=== PATIENT | female | born 1945 | race Caucasian/White ===

== ENCOUNTER → 2017-08-13 14:19 | Outpatient (CLI) | payer MEDICARE, SELFPAY ==
--- NOTE | 2017-08-13 14:20 | RAD_ITS ---
STUDY: X-RAY - LEFT KNEE REASON FOR EXAM: Follow-up after recent fall and surgery of the patella in June. TECHNIQUE: 4 view(s) of the knee. COMPARISON: Radiographs 07/09/2017. FINDINGS: Normal visualized distal femur. Normal visualized proximal tibia and fibula. Normal proximal tibiofibular articulation. Normal medial femorotibial compartment. Normal lateral femorotibial compartment. There are 2 screws transfixing a healing fracture of the patella in anatomic position. There is mild anterior soft tissue swelling. RAD/Knee 4 or More Views IMPRESSION: ORIF of healing patellar fracture. Electronically Signed: Chepe Longoria MD at 16:13 EST Tel , Service support ,
== END ==
PROVIDERS: Family Provider Family Medicine; PCP Family Medicine; Visit Provider Orthopaedic Surgery
DX: S82.002D Unspecified fracture of left patella, subsequent encounter for closed fracture with routine healing (principal); X58.XXXD Exposure to other specified factors, subsequent encounter
CPT/HCPCS: 73564

== ENCOUNTER 2017-09-16 14:30 | Outpatient (RCR) | payer MEDICARE, SELFPAY ==
--- NOTE | 2017-07-15 16:15 | HP.PTEVAL ---
Patient's Visit Information REE WILEY is a 72 year old F referred to Physical Therapy by DO PAYTON Watts with a diagnosis of S/P L patella ORIF approx 04/25. Date of Evaluation: 07/15/17 Physical Therapist: Jeff Cole DPT, OC - Visit Plan Frequency: 1x/Week Duration: 4-6 Weeks Plan: weekly to start as patient is doing well with ROM adn pain /swelling limited currently by limitations per script. Wisdom ee for patellar mobs, knee ROM progression, wrist ROM(I asked doctor and office said she could move wrist for ROM, Strength progression of hips and ankels and knees when appropriate. Gait progression as allowed by script. 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 Went to ER the next day. Hurt R wrist also and has slight fracture in R elbow so is wearing wrist brace. Got x ray and surgery 3 days later. Patella was split in half and she pinned it and surgical mesh around the patells. All tendons in tact. In brace since surgery, needed walker the first few days to steady self. Walks around house now with brace and without AD. L knee pain is mostly not a problem, if moves it wrong way then it will hurt 8/10. R elbow hurts slightly posterior if bends it too far. Sleep is OK now, up a little bit just after surgery. Sleeps in a recliner. Stpes at [place] but does not need to use them. Bathroom and needs are on main floor. Dresses self except can't get L shoe and sock on. brace on and off herself. Sitting around mostly at home. No exercises except ankle pump. Fairly sedentary, but works at [employer] on feet all the time. Will be off for a while.Can get a 10 minute break every hour. No falls other than this one. No dizzyness. Doctor said to be careful and gentle at first. - Pain L knee Pain Intensity (Out of 10): 0 Pain Intensity Range: 0, 3 - Objective pUSHED BACK TO EVAL ROOM IN but walks out of clinic without pain with brace locked in ext on L. Don brace with assist, doff sI. Ambulate I , transfers I, rolls on bed I. R AROM WNL and 5/5 strength. L knee 0-70 AROM today without pain, i explained to her the limtiations based on her prescription. SLR with 5 ext lag. Knee strength NT L , hip 4-/5 on L and ankle 4/5. Incision is anterior at knee cap, no signs of excessive redness heat or swelling., patella is mildlytender medially and swelling is minimal today. Patella is stiff iin inf/superior direction. - Goals Goal 1:: 0-90 AROM within allowances of script adn progress appropriately Goal Time Frame: 4-6 Weeks Goal 2:: Pain remain 0-1/10 and comfortable at rest while improving WB and and ROM and strength. Goal Time Frame: 4-6 Weeks Goal 3:: When allowed, walk without gait deviations and steps reciprocal with one rail Goal Time Frame: 4-6 Weeks - Rehabilitation Potential Physical Therapy Diagnosis: S/P L patella ORIF - Anticipated Interventions Patient/Client Instruction: Educate patient on: Condition, Plan of Care For the Purpose of:: To increase ROM, To improve nutrient delivery to tissue, To improve ability of physical actions for home/community/work/leisure, To improve gait and locomotor functions Therapeutic Exercise to Include: Strength training, Flexibilty training, Gait and locomotor training, Passive ROM, Active ROM For the Purpose of:: To increase ROM, To improve nutrient delivery to tissue, To improve muscle performance and motor function, To improve ability of physical actions for home/community/work/leisure, To improve gait and locomotor functions Manual Therapy Techniques to Include: Mobilization Comment: patella For the Purpose of:: To increase ROM Cryotherapy (ice pack, ice massage): Yes For the Purpose of:: To decrease swelling/inflammation Thank you for the opportunity to evaluate your patient. For Medicare and Medicare HMO plans, please review the plan of care and approve it. It will need to be FAXED BACK to us at [phone] for Medicare purposes. Please let me know if there are questions or concerns regarding this plan of care. Physician Signature: Date:
--- NOTE | 2017-08-05 14:44 | HP.PTREVAL_ITS ---
Morena Reaves DO, It has been my pleasure to treat REE WILEY over the last 3 visits for S/ P L patella ORIF approx 04/25. Please see the progress note below for an update on the physical therapy plan of care! Subjective: No pain. Feels tension at times with ex. Doing them without problem. Motion is improving. Sleep is good. Not leaving house alot as steps do not have rail. Objective/Function: 0-90 AROM in supine, pain at end range. Patella very stiff in the inferior direction but loosens up nicely with mobs. 0-85 in prone. PT IS ON TARGET ACCORDING TO LIMITATIONS ON PRESCRIPTION AND READY TO PROGRESS STRENGTH ADN ROM WHEN RELEASED BY DOCTOR. Plan Plan: f/u next week after doctor visit to progress WB out of brace if doctor allows. Progress ROM and strength as allowed by doctor. Goals Goal 1:: 0-90 AROM within allowances of script adn progress appropriately Goal Time Frame: 4-6 Weeks Goal Progress: Progressing Goal 2:: Pain remain 0-1/10 and comfortable at rest while improving WB and and ROM and strength. Goal Time Frame: 4-6 Weeks Goal Progress: - Goal 3:: When allowed, walk without gait deviations and steps reciprocal with one rail Goal Time Frame: 4-6 Weeks Anticipated Interventions Patient/Client Instruction: Educate patient on: Condition, Plan of Care For the Purpose of:: To increase ROM, To improve nutrient delivery to tissue, To improve ability of physical actions for home/community/work/leisure, To improve gait and locomotor functions Therapeutic Exercise to Include: Strength training, Flexibilty training, Gait and locomotor training, Passive ROM, Active ROM For the Purpose of:: To increase ROM, To improve nutrient delivery to tissue, To improve muscle performance and motor function, To improve ability of physical actions for home/community/work/leisure, To improve gait and locomotor functions Manual Therapy Techniques to Include: Mobilization Comment: patella For the Purpose of:: To increase ROM Cryotherapy (ice pack, ice massage): Yes For the Purpose of:: To decrease swelling/inflammation Please do not hesitate to contact me at [phone] by phone or Fax: if you have questions or concerns regarding this new plan of care! Sincerely, Jeff Cole, PEMAT, OC
--- NOTE | 2017-08-14 14:23 | HP.PTREVAL_ITS ---
Morena Reaves DO, It has been my pleasure to treat REE WILEY over the last 4 visits for S/ P L patella ORIF approx 04/25. Please see the progress note below for an update on the physical therapy plan of care! Subjective: Good report from doctor , no more brace, no real pain. Doing great. Sore leg from strengthening ex. HEP going well. Objective/Function: 0-95 AROMK to start then 98 after a few repetitions with OP. Walking is safe and I without brace today, steps are reciprocal with rail up and needs two rails and much UE support to descend with L as she does nto yet have enough motion. Plan Plan: G- code LEFS and. in gym for teach strength 1x/week for 2-4 weeks as needed then silver sneakers if motion improving. Also show step ups and standing ex if pain doing well. Goals Goal 1:: 0-90 AROM within allowances of script adn progress appropriately Goal Time Frame: 4-6 Weeks Goal Progress: Progressing Goal 2:: Pain remain 0-1/10 and comfortable at rest while improving WB and and ROM and strength. Goal Time Frame: 4-6 Weeks Goal Progress: - Goal 3:: When allowed, walk without gait deviations and steps reciprocal with one rail Goal Time Frame: 4-6 Weeks Anticipated Interventions Patient/Client Instruction: Educate patient on: Condition, Plan of Care For the Purpose of:: To increase ROM, To improve nutrient delivery to tissue, To improve ability of physical actions for home/community/work/leisure, To improve gait and locomotor functions Therapeutic Exercise to Include: Strength training, Flexibilty training, Gait and locomotor training, Passive ROM, Active ROM For the Purpose of:: To increase ROM, To improve nutrient delivery to tissue, To improve muscle performance and motor function, To improve ability of physical actions for home/community/work/leisure, To improve gait and locomotor functions Manual Therapy Techniques to Include: Mobilization Comment: patella For the Purpose of:: To increase ROM Cryotherapy (ice pack, ice massage): Yes For the Purpose of:: To decrease swelling/inflammation Please do not hesitate to contact me at [phone] by phone or Fax: if you have questions or concerns regarding this new plan of care! Sincerely, Jeff Cole, DPT, OC
--- NOTE | 2017-08-22 12:50 | HP.PTREVAL_ITS ---
Morena Reaves DO, It has been my pleasure to treat REE WILEY over the last 5 visits for S/ P L patella ORIF approx 04/25. Please see the progress note below for an update on the physical therapy plan of care! Subjective: Took a day off of ex and took it easy and is feeling good today, was sore two days ago. Sleeping well and swelling coming down. HEP going OK, bending to end range still painful at times. Objective/Function: 0-104 AROM. 107 after therapy. 0 ext lag with SLR. Walks with mnor L antalgia. Down steps with L turns to side a little bit due to ROM. Plan Plan: Continue weekly to every other week for 2-4 visits to progress ex, ensure tolerance and progress steps Goals Goal 1:: 0-90 AROM within allowances of script adn progress appropriately Goal Time Frame: 4-6 Weeks Goal Progress: Progressing Goal 2:: Pain remain 0-1/10 and comfortable at rest while improving WB and and ROM and strength. Goal Time Frame: 4-6 Weeks Goal Progress: Goal Met Goal 3:: When allowed, walk without gait deviations and steps reciprocal with one rail Goal Time Frame: 4-6 Weeks Goal Progress: Progressing Goal 4:: Pt feel life activities back to normal Goal Time Frame: 4-6 Weeks Goal Progress: NEW GOAL Anticipated Interventions Patient/Client Instruction: Educate patient on: Condition, Plan of Care For the Purpose of:: To increase ROM, To improve nutrient delivery to tissue, To improve ability of physical actions for home/community/work/leisure, To improve gait and locomotor functions Therapeutic Exercise to Include: Strength training, Flexibilty training, Gait and locomotor training, Passive ROM, Active ROM For the Purpose of:: To increase ROM, To improve nutrient delivery to tissue, To improve muscle performance and motor function, To improve ability of physical actions for home/community/work/leisure, To improve gait and locomotor functions Manual Therapy Techniques to Include: Mobilization Comment: patella For the Purpose of:: To increase ROM Cryotherapy (ice pack, ice massage): Yes For the Purpose of:: To decrease swelling/inflammation Please do not hesitate to contact me at [phone] by phone or Fax: if you have questions or concerns regarding this new plan of care! Sincerely, Jeff Cole DPT, OC
--- NOTE | 2017-09-16 14:59 | HP.PTDCSUM ---
HP - PT D/C Summary It has been my pleasure to treat REE WILEY under orders from Morena Reaves DO, for the diagnosis of S/P L patella ORIF approx 04/25 for a total of 6 visit(s). Discharge Date: 09/16/17 Please see the following information for a summary of their discharge status. - Subjective Subjective: Doing leg lifts x 3, not step ups or machines. Retired last week in order to afford insurance. To doctor 09/23. Sleep is OK. Achy in L knee much of time. All joints ached last week. Wants to be done with PT due to insurance situation. Will initiate gym ex when daughter feels better in a week or so. - Pain L knee Pain Intensity (Out of 10): 4 - Objective Objective/Function: 0-112 aROM. steps are reciprocal and slightly weak descending with L. also a little painful. Gait is normal. Overall much better and can continue on own. I had hoped for her to have a few weeks of gym ex and WB ex by this time but she has not yet begun outside of PT. - Goals Goal 1:: 0-90 AROM within allowances of script adn progress appropriately Goal Progress: Goal Met Goal 2:: Pain remain 0-1/10 and comfortable at rest while improving WB and and ROM and strength. Goal Progress: Progressing Goal 3:: When allowed, walk without gait deviations and steps reciprocal with one rail Goal Progress: Goal Met Goal 4:: Pt feel life activities back to normal Goal Progress: Goal Met - Plan Plan: D/C to gym ex. - D/C Information Discharge Comments: Doing OK, motion slowly improving. Strength slowly improving. Steady ache remains. Wishes to be done with PT due to insurance reasons and should do well on her own. Will f.u with doctor next week. If there are questions or concerns regarding this patient's physical therapy, please feel free to call me at [phone]. Thank you for the referral of this patient. Sincerely, Jeff Cole, DPT, OC
== END 2017-09-16 19:00 | disposition home or self-care (01) ==
LOC: PT 14:30
PROVIDERS: Family Provider Family Medicine; PCP Family Medicine; Visit Provider Orthopaedic Surgery
DX: Z98.890 Other specified postprocedural states (principal)
CPT/HCPCS: 97110; 97162; 97530

== ENCOUNTER → 2017-09-26 12:48 | Outpatient (CLI) | payer MEDICARE, SELFPAY ==
--- NOTE | 2017-09-26 12:51 | RAD_ITS ---
STUDY: X-RAY - LEFT KNEE REASON FOR EXAM: 3 months postop. TECHNIQUE: 4 view(s) of the knee. COMPARISON: Radiographs 08/13/2017 and 07/09/2017. FINDINGS: Normal visualized distal femur. Normal visualized proximal tibia and fibula. Normal proximal tibiofibular articulation. Normal medial femorotibial compartment. Normal lateral femorotibial compartment. Normal patellofemoral articulation. There are 2 screws transfixing a patellar fracture with the fragments remaining in anatomical alignment and position. There is interval healing with the fracture line less distinct. The soft tissue structures are unremarkable. RAD/Knee 4 or More Views IMPRESSION: ORIF of healing patellar fracture. Electronically Signed: Chepe Longoria MD at 11:46 EDT Tel , Service support ,
--- NOTE | 2017-09-26 13:26 | RAD_ITS ---
STUDY: X-RAY - RIGHT HAND, ATTENTION RING FINGER REASON FOR EXAM: Soft tissue growth/infection at the DIP of the ring finger. TECHNIQUE: 3 view(s) of the finger were obtained. COMPARISON: None. FINDINGS: Normal metacarpal head. Normal metacarpophalangeal joint. Normal proximal phalanx. Normal middle phalanx. Normal distal phalanx without osseous destruction. Normal proximal interphalangeal joint. There is mild arthrosis of the distal interphalangeal with small marginal osteophytes and mild joint space narrowing. There is soft tissue swelling of the distal aspect of the ring finger. 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 Soft tissue swelling. Electronically Signed: Chepe Longoria MD at 11:49 EDT Tel , Service support ,
== END ==
PROVIDERS: Family Provider Family Medicine; PCP Family Medicine; Visit Provider Orthopaedic Surgery
DX: S60.454A Superficial foreign body of right ring finger, initial encounter (principal); L08.9 Local infection of the skin and subcutaneous tissue, unspecified; S82.009A Unspecified fracture of unspecified patella, initial encounter for closed fracture
CPT/HCPCS: 73140; 73564

== ENCOUNTER 2017-10-07 17:59 | Outpatient (RCR) | payer MEDICARE, SELFPAY ==
--- NOTE | 2017-10-07 19:03 | HP.OTEVAL_ITS ---
Patient's Visit Information REE WILEY is a 72 year old F, referred to Occupational Therapy by Morena Reaves DO, with a diagnosis of right RF infection. 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 no demo pain reaction with light or med touch this visit - Hand/Wrist Evaluation Total Score of Pain & Functional Sections: 11 - Rehabilitation General Assessment: pt demo with superfical stitch with knot- after warm water soak therapist was able to remove stitch- trace of blood- instructed to keep clean and cover when cleaning house and not to wash dishes- pt demo understanding states she is to return to dr. reaves next week- glad she will not have to have sx for stitch removal- no pain reported Rehabilitation Potential: Good - Anticipated Interventions Anticipated Interventions: Edema Control, Scar Care, Triggerpoint Release, Desensitization, Wound Care - Visit Plan Frequency: one visit TEXT: Thank you for the opportunity to evaluate your patient. For Medicare and Medicare HMO plans, please review the plan of care and approve it. It will need to be FAXED BACK to us at [phone] for Medicare purposes. Please let me know if there are questions or concerns regarding this plan of care. Physician Signature: Date:
--- NOTE | 2017-11-26 13:21 | HP.OTDCSUM_ITS ---
HP - OT D/C Summary It has been my pleasure to treat REE WILEY under orders from Morena Reaves DO, for the diagnosis of right RF infection for a total of 1 visit(s ). Please see the following information for a summary of their discharge status. At pts initial OT eval therapist was able to remove stitch for pt to avoid sx. pt was instructed in wound care and advised to return to for follow up. pt was seen for one visit only - Objective Objective/Function: pt demo full ROM- underline stitch that is causing irritation - Goals Other: get stitch out so she can avoid sx - D/C Information If there are questions or concerns regarding this patient's occupational therapy , please fell free to call me at [phone]. Thank you for the referral of this patient. Sincerely, Sophia Michel, OTR/L, CHT
== END 2017-10-07 19:00 | disposition home or self-care (01) ==
LOC: OT 17:59
PROVIDERS: Family Provider Student in an Organized Health Care Education/Training Program; PCP Student in an Organized Health Care Education/Training Program; Visit Provider Orthopaedic Surgery
DX: L08.9 Local infection of the skin and subcutaneous tissue, unspecified (principal)
CPT/HCPCS: 97166; 97530

== ENCOUNTER → 2019-12-03 09:11 | Outpatient (CLI) | payer MEDICARE, SELFPAY ==
[2019-12-03 09:08] VITALS: BMI 28.1
--- NOTE | 2019-12-03 09:12 | RAD_ITS ---
STUDY: X-RAY - RIGHT SHOULDER REASON FOR EXAM: Neck and right shoulder pain. TECHNIQUE: 3 view(s) of the shoulder. COMPARISON: Radiographs 04/16/2016. FINDINGS: Normal glenohumeral articulation. There is mild acromioclavicular arthrosis. Normal acromion. Normal humeral head and visualized proximal humerus. The soft tissue structures are unremarkable. Normal visualized pulmonary apex. RAD/Shoulder min 2 Views IMPRESSION: Mild acromioclavicular arthrosis without interval change. Electronically Signed: Chepe Longoria MD at 12:09 EDT Tel , Service support ,
--- NOTE | 2019-12-03 09:12 | RAD_ITS ---
STUDY: X-RAY - CERVICAL SPINE REASON FOR EXAM: Female, 74 years old. NECK AND RIGHT SHOULDER PAIN TECHNIQUE: 5 view(s) of the cervical spine were obtained. COMPARISON: None FINDINGS: Normal anterior atlantoaxial articulation. Normal odontoid process. Normal cervical lordosis. There is no demonstrated fracture. Vertebral body heights are well-maintained. Mild disc space narrowing at C3-4, C4-5, and C5-6. 2 mm retrolisthesis at C3-4. Foraminal encroachment due to uncinate hypertrophy at C4-5, C5-6 and C6-7 is moderate on the right and mild on the left. The soft tissue structures are unremarkable. RAD/Cerv Spine 4 or 5 Views IMPRESSION: 1. No demonstrated trauma. 2. Mild C3-4 retrolisthesis. 3. Multilevel foraminal encroachment. 4. Degenerative disc changes as noted above. Electronically Signed: Heidi Culp MD at 23:59 EDT Tel , Service support ,
== END ==
LOC: HPRAD 09:12
PROVIDERS: PCP Student in an Organized Health Care Education/Training Program; Referring Provider Orthopaedic Surgery; Visit Provider Orthopaedic Surgery
DX: M79.601 Pain in right arm (principal); M25.511 Pain in right shoulder
CPT/HCPCS: 72050; 73030

== ENCOUNTER → 2019-12-22 16:50 | Outpatient (CLI) | payer MEDICARE, SELFPAY ==
[2019-12-03 09:08] VITALS: BMI 28.1
--- NOTE | 2019-12-22 16:52 | MRI_ITS ---
STUDY: MRI RIGHT SHOULDER REASON FOR EXAM: Right shoulder pain, weakness, limited range of motion, numbness in fingers. TECHNIQUE: Standardized fat and water weighted pulse sequences were obtained in all 3 orthogonal planes. COMPARISON: Radiographs 12/03/2019. FINDINGS: There is a full-thickness tear of the supraspinatus and infraspinatus tendons retracted approximately 2.4 cm (T2 coronal images 5-12). Normal subscapularis tendon. Normal teres minor tendon. Normal supraspinatus muscle. Normal infraspinatus muscle. Normal subscapularis muscle. Normal teres minor muscle. There is a glenohumeral joint effusion. There is superior migration of the humeral head secondary to the retracted rotator cuff tear. There is a tear with nonvisualization of the intracapsular long biceps tendon. Normal labrum. Normal capsulo- ligamentous complex. There is acromioclavicular arthrosis with a small undersurface osteophyte of the distal clavicle (T2 sagittal image 10). There is a Type II morphology (curved), with a neutral orientation. There is a small volume of subacromial-subdeltoid bursal fluid. Normal visualized coracohumeral and coracoacromial ligaments. Normal deltoid muscle. Normal trapezius muscle. MRI/Upper Ext Joint Only(Routine) IMPRESSION: Full-thickness tear of the supraspinatus and infraspinatus tendons. Tear of the long biceps tendon. Acromioclavicular arthrosis. Glenohumeral joint fluid communicating with the subacromial-subdeltoid bursa. Electronically Signed: Chepe Longoria MD at 7:50 EDT Tel , Service support ,
== END ==
LOC: MRI 16:52
PROVIDERS: PCP Student in an Organized Health Care Education/Training Program; Referring Provider Orthopaedic Surgery; Visit Provider Orthopaedic Surgery
DX: M75.101 Unspecified rotator cuff tear or rupture of right shoulder, not specified as traumatic (principal)
CPT/HCPCS: 73221

== ENCOUNTER 2020-02-26 14:00 | Outpatient (RCR) | payer MEDICARE, SELFPAY ==
[2019-12-29 13:37] VITALS: BMI 28.1
--- NOTE | 2020-01-05 12:48 | HP.PTEVAL_ITS ---
Patient's Visit Information REE WILEY is a 74 year old F referred to Physical Therapy by Dr. Morena Reaves DO with a diagnosis of R RCT and L shoulder pain. Date of Evaluation: 01/05/20 Physical Therapist: Jeff Cole, DPT, OCS, CSCS - Visit Plan Frequency: 2x /Week Duration: 4-6 Weeks Plan: 2x/week for 4-6 weeks for.. 1. R shoulder aROM/PROM. 2. RC and scap painfree strength first at home adn then in gym if patient willing. Pt may want less visits with co pay. Next session teach phase 3 for HEP if tolerates. - Subjective Lshoulder pain and RCT. R shoulder has tear adn some pain. Using L more because of R tear. L shoulder hurts minimally with sharp pain here adn there 4/10 adn aches at night. R shoulder hurts bad 8/10 and got shot last week and much better 50%. Sleep is interrupted some days due to achiness if she overuses it. Has tried to keep it close to body. Have been achy for 6-8 months but did not come in due to covid. No exercises for shoulder. Wants to do them at home as much as possible. 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 Spends day playing on phone computer. Retired. Basic ADLs include dressing , bathes, bathroom, steps withotu difficulty. - Pain R shouldr Pain Intensity (Out of 10): 2 Pain Intensity Range: 0, 8 L houlder Pain Intensity (Out of 10): 0 Pain Intensity Range: 0, 4 - Objective Posture is forward scap and elevated. Head is forward. Tender to touch R supra spinatus and bicep tendon. L UE aROM is WFL at 165 flexion and 75 ext eoation, l4 IR. R UE AROM is slow with elevation and painfulat 90 with painful arc. 135 flexion, 60 ext rotationa dn psis IR all with pain. Elbows and wrists move symmetrically and well without pain. reflexes 1/3 bi and tri B. Sensation WNL in B UE to gross lgiht touch. Strength is 3 in R shoulder ext rotation with pain and 3 in flexion/abd with pain, otherwise 4 in IR adn 4in biceps and triceps. L shoulder is 4 throughout without pain. + neer an HK B. - ext rotation lag test. + drop arm R. - Goals Goal 1:: ST:sleep withotu waking due to pain. Goal Time Frame: 2-4 Weeks Goal 2:: LT: Full aROM R UE without evidence of pain Goal Time Frame: 4-6 Weeks Goal 3:: I approp HEP for strengthening scap adn posture adn RC without increased pain. Goal Time Frame: 4-6 Weeks Goal 4:: DASH score of 22 or less Goal Time Frame: 4-6 Weeks - Rehabilitation Potential Physical Therapy Diagnosis: R RCT adn B shoulder pain. Rehabilitation Potential: Fair - Anticipated Interventions Patient/Client Instruction: Educate patient on: Condition, Plan of Care For the Purpose of:: To decrease pain, To increase ROM, To improve ability to perform ADL's Therapeutic Exercise to Include: Strength training, Postural training, Neuromotor development, Passive ROM, Active ROM For the Purpose of:: To decrease pain, To increase ROM, To improve muscle performance and motor function, To increase tolerance to activity/condition/position Thank you for the opportunity to evaluate your patient. For Medicare and Medicare HMO plans, please review the plan of care and approve it. It will need to be FAXED BACK to us at [phone] for Medicare purposes. For Medicare only, by signing this I certify the plan of care. Please let me know if there are questions or concerns regarding this plan of care. Physician Signature: Date:
--- NOTE | 2020-02-09 11:34 | HP.PTREVAL_ITS ---
Dr. Morena Reaves, DO, It has been my pleasure to treat REE WILEY over the last 3 visits for R RCT and L shoulder pain. Please see the progress note below for an update on the physical therapy plan of care! Subjective: For last 3 weks have been doing ex with band 2x10 with G/YTB. Feeling pretty good. Then this past Saturday she gave someone a hug and got sudden pain in R shoulder. 50% worse since that hug adn was doing very well near 100% prior. Now 50% worse again. Pain 2/10 today. No f/u scheduled and she cancelled it as she does not want surgery. Improving. Objective/Function: Full aROM R shoulder slowly into elevation except ext rotation which is to 25 degrees and weak and painful with resistance. E levationa dn IR are 3+ and 4 strengtha dn without much pain. Not ready to go out into the gyma dn strengthen due to setback this weekend. Will allow rest adn recovery and back to phase 3 prior to progressing to [facility] next session Plan Plan: Pt to call next week to schedule for elevation strength adn likely gym ex the week if getting bakc to full go. Goals Goal 1:: ST:sleep withotu waking due to pain. Goal Time Frame: 2-4 Weeks Goal 2:: LT: Full aROM R UE without evidence of pain Goal Time Frame: 4-6 Weeks Goal 3:: I approp HEP for strengthening scap adn posture adn RC without increased pain. Goal Time Frame: 4-6 Weeks Goal 4:: DASH score of 22 or less Goal Time Frame: 4-6 Weeks Anticipated Interventions Patient/Client Instruction: Educate patient on: Condition, Plan of Care For the Purpose of:: To decrease pain, To increase ROM, To improve ability to perform ADL's Therapeutic Exercise to Include: Strength training, Postural training, Neuromotor development, Passive ROM, Active ROM For the Purpose of:: To decrease pain, To increase ROM, To improve muscle performance and motor function, To increase tolerance to activity/condition/position Please do not hesitate to contact me at [phone] by phone or if you have questions or concerns regarding this new plan of care! Sincerely, Jeff Cole, DPT, OCS, CSCS
--- NOTE | 2020-05-03 15:51 | HP.PT.NRP ---
REE WILEY was seen in my office for initial evaluation on 01/05/20. The following Plan of Care was established for this patient: Initial Frequency: 2x /Week Initial Duration: 4-6 Weeks Patient/Client Instruction: Educate patient on: Condition, Plan of Care For the Purpose of:: To decrease pain, To increase ROM, To improve ability to perform ADL's Therapeutic Exercise to Include: Strength training, Postural training, Neuromotor development, Passive ROM, Active ROM For the Purpose of:: To decrease pain, To increase ROM, To improve muscle performance and motor function, To increase tolerance to activity/condition/position This patient was last seen in our office 02/26/20. Pertinent comments regarding their Physical therapy will appear below: Pt seen four visits of POC and has progressed to an I gym program. She was to f/u a week later but admitted that she may not attend if doing well due to her copay. she did not attend. She was 50% better overall adn I in gym program. I iwll discontinue at this time due to nonattendance. At this point I will be discontinuing this patient from physical therapy. I would be happy to see this patient again in the future if found appropriate by the physician. Thank you! Jeff Cole, DPT, OCS, CSCS
== END 2020-02-26 19:00 | disposition home or self-care (01) ==
LOC: PT 14:00
PROVIDERS: PCP Student in an Organized Health Care Education/Training Program; Referring Provider Orthopaedic Surgery; Visit Provider Orthopaedic Surgery
DX: M75.102 Unspecified rotator cuff tear or rupture of left shoulder, not specified as traumatic (principal); M25.512 Pain in left shoulder
CPT/HCPCS: 97110; 97162; 97530

== ENCOUNTER 2021-05-29 21:55 | Observation (INO) | payer MEDICARE, SELFPAY ==
[2021-05-29 21:56] VITALS: BP 128/77; PULSE 84; RESP 16; TEMP 36.7; O2SAT 100; BMI 28.1
--- NOTE | 2021-05-29 22:18 | RAD_ITS ---
STUDY: X-RAY - RIGHT ANKLE REASON FOR EXAM: Female, 76 years old. fall tonight. Rt ankle pain and swelling DEFORMITY TECHNIQUE: 3 view(s) of the ankle. COMPARISON: None. FINDINGS: An acute oblique fracture of the distal one third fibular shaft is present with lateral displacement of the distal fracture fragment by 1.17 cm. An acute mildly comminuted minimally displaced fracture of the origin of the medial malleolus is also present. A mildly comminuted impaction fracture of the posterior tibial malleolus is also present. There is posterior dislocation of the talus from the tibial plafond of 1.73 cm. A large plantar calcaneal spur is present. Normal visualized talus and calcaneus. The visualized subtalar, talonavicular, calcaneocuboid and tarsal articulations are normal. The soft tissues are swollen and deformed around the fracture sites. RAD/Ankle min 3 Views IMPRESSION: 1. Comminuted fracture the posterior tibial malleolus 2. Comminuted medial malleolus fracture 3. Oblique displaced distal fibular fracture 4. Posterior dislocation of the talus from the tibial plafond Electronically Signed: Ry Tom MD at 23:08 EST , Service support ,
--- NOTE | 2021-05-29 22:26 | RAD_ITS ---
STUDY: X-RAY CHEST REASON FOR EXAM: Female, 76 years old. pre-op TECHNIQUE: PA and lateral views of the chest. COMPARISON: None. FINDINGS: The lungs are clear and expanded. There is no demonstrated pleural abnormality. Normal size heart. Normal mediastinum and shania. Normal visualized pulmonary arteries. There is atherosclerotic calcification of the aortic arch with tortuosity. There is a dextroscoliosis of the thoracic spine. Normal visualized ribs, clavicles, and shoulders. There is no demonstrated abnormality of the visualized soft tissue structures of the upper abdomen. RAD/Chest 1 View (Portable) IMPRESSION: Degenerative changes, as described above. No demonstrated acute cardiopulmonary process. Electronically Signed: Ry Tom MD at 23:33 EST , Service support ,
--- NOTE | 2021-05-29 22:27 | EKG12_ITS ---
Test Reason : FALL Blood Pressure : / mmHG Vent. Rate : 073 BPM Atrial Rate : 073 BPM P-R Int : 148 ms QRS Dur : 082 ms QT Int : 400 ms P-R-T Axes : 021 -11 005 degrees QTc Int : 440 ms Normal sinus rhythm Incomplete right bundle branch block Confirmed by TRACEY ASHBY, DENTON ([id number]), newspaper editor managing JANIE GUERIN ([id number]) on 05/31/2021 12:15:16 PM Referred By: YANNA Confirmed By:DENTON WEBB MD
--- NOTE | 2021-05-29 22:31 | EDS_ITS ---
HPI History of Present Illness Chief Complaint: Lower Extremity Injury Detail of Chief Complaint: Ankle injury walking her dog. Informant: patient Occured/Mechanism Mechanism/Context: Yes blunt trauma Onset/Context/Timing Onset: Hours Context: Sudden Onset Timing: Continuous Quality of Pain: Dull, Aching and Throbbing Location: Right ankle Current Severity: Mild Maximum Severity: Severe Worsened by: Movement Relieved by: Nothing Associated Symptoms Associated Symptoms: Positive for Loss of Funtion; Negative for Parasthesia and Weakness Narrative Narrative: Patient is an elderly woman with history of patella fracture, shoul chelo dislocation who has seen And a félix Mcgovern in the past. She presents because of deformity to the right ankle after fall walking her dog. She denies paresthesia, anesthesia medics. She denies head trauma. Denies loss of conscious. Denies neck pain. Denies cardiac or respiratory symptoms. She denies GI or symptoms. She has had no prior complications with anesthesia. She denies allergy to soy products or egg products. Tetanus Immunization: 5-10 years Prior similar symptoms: No Recent Illness/Hospitalization: No [facility] Medical History (Updated 05/29/21 @ 23:[address] Jama Waddell MD) Arthritis Back pain Hay fever History of hemorrhoids Hypertension Knee pain Neck pain Shoulder pain Home Medications amitriptyline 10 mg tablet 5 mg PO QHS 81 Days #162 06/18/17 [History Last Taken Unknown] acetaminophen 500 - 1,000 mg PO Q6H PRN PRN 06/25/17 [History Last Taken Unknown] biotin-keratin 1 ea PO QHS 06/25/17 [History Last Taken Unknown] cholecalciferol (vitamin D3) 1,000 unit PO QHS 06/25/17 [History Last Taken Unknown] esomeprazole magnesium 20 mg PO QHS 06/25/17 [History Last Taken Unknown] [id number]-[id number] 1 ea PO QHS 06/25/17 [History Last Taken Unknown] latanoprost 1 drp EACH EYE QHS 06/25/17 [History Last Taken Unknown] lisinopril-hydrochlorothiazide 1 tab PO QHS 06/25/17 [History Last Taken Unknown] meloxicam 7.5 mg PO QHS 06/25/17 [History Last Taken Unknown] sertraline 50 mg PO DAILY 06/25/17 [History Last Taken Unknown] sodium chloride 1 drp RIGHT EYE DAILY 06/25/17 [History Last Taken Unknown] timolol maleate 1 drp EACH EYE DAILY 06/25/17 [History Last Taken Unknown] ibuprofen 200 mg capsule 200 mg PO ONCE 07/09/17 [History Last Taken Unknown] diclofenac sodium 75 mg PO BID 05/29/21 [History Last Taken Unknown] Allergy/AdvReac Type Severity Reaction Status Date / Time alendronate sodium Allergy Pain in Verified 05/29/21 21:57 [From Fosamax] joints Sulfa (Sulfonamide Allergy Shortness Verified 05/29/21 21:57 Antibiotics) of breath Surgical History S/P ORIF (open reduction internal fixation) fracture Social History Smoking Status: Never smoker alcohol intake: never ROS ROS ED Constitutional Constitutional ED: Denies chills, fever(s), subjective or sweats Eyes Eyes: Denies blurry vision or change in vision ENT ENT ED: Denies ear pain, rhinorrhea or sore throat Cardiovascular Cardiovascular: Denies chest pain or palpitations Respiratory/Chest Respiratory/Chest: Denies cough, dyspnea or dyspnea on exertion Gastrointestinal Gastrointestinal: Denies abdominal pain, diarrhea, nausea or vomiting Genitourinary Genitourinary ED: Denies dysuria, hematuria or urinary frequency Musculoskeletal Musculoskeletal: Reports other Details: Right ankle pain ; Denies arthralgias, back pain, myalgias or neck pain Integumentary Denies abscess, Abrasions or rash Neurologic Neurologic: Denies headache(s), paresthesias or weakness Endocrine Endocrinology: Denies polydipsia, polyphagia or polyuria Hematologic/Lymphatic Hematologic/Lymphatic: Denies easy bleeding or easy bruising EXAM Physical Exam Const Vital Signs: 05/29/21 21:56 05/29/21 22:46 05/29/21 22:58 Temperature 98.1 F Temperature Source Temporal Pulse Rate 84 65 Pulse Rate [1 (Initial Baseline)] 71 Pulse Rate [2] 63 Pulse Rate [3] 66 Respiratory Rate 16 20 H Respiratory Rate [1 (Initial Baseline)] 10 L Respiratory Rate [2] 13 Respiratory Rate [3] 20 H Blood Pressure 128/77 H 102/61 Blood Pressure [1 (Initial Baseline)] 136/60 H Blood Pressure [2] 136/60 H Blood Pressure [3] 102/61 Blood Pressure Mean 94 74 Pulse Ox 100 95 Oxygen Delivery Method Nasal Cannula Oxygen Delivery Method [1 (Initial Baseline)] Room Air Oxygen Delivery Method [2] Nasal Cannula Oxygen Delivery Method [3] Nasal Cannula Oxygen Flow Rate (L/min) 2 Oxygen Flow Rate (L/min) [1 (Initial Baseline)] 2 Oxygen Flow Rate (L/min) [2] 3 Oxygen Flow Rate (L/min) [3] 3 Positive well nourished and well developed General Appearance ED: well developed; Negative for NAD HEENT Reports moist mucous membranes HEENT Narrative: No clinical evidence of basilar skull fracture. normocephalic and atraumatic Eyes PERRL Eyes Narrative: Extract muscle intact. There is no subconjunctival hemorrhage noted. Neck full ROM and supple Chest Wall palpation of chest normal Resp normal respiratory effort and clear to auscultation bilaterally Cardio regular rate, regular rhythm, S1 normal heart sound, S2 normal heart sound and no murmurs GI non-tender, non-distended and no masses GI Narrative: There is no pain the patient in the pelvis. Auscultation: normoactive bowel sounds Palpation: soft Back/Spine no CVA tenderness Cervical Spine: Negative for cervical spine tenderness Thoracic Spine / Upper Back: Negative for thoracic spinal tenderness Lumbar Spine / Lower Back: Negative for lumbar spinal tenderness Extremity Negative for normal to inspection or full ROM Extremity Narrative: Deformity of the ankle suggestive of posterior dislocation/fracture General Extremety ED: Yes cyanosis, edema and weight-bearing difficulty General Extremity: cyanosis, edema and weight-bearing difficulty Neuro oriented x3 and CN's II-XII intact bilaterally Sensorium / Orientation: alert Psych mental status grossly normal Skin no wounds Lesions: no lesions Rashes: no rashes MDM MDM MDM Narrative Medical decision making narrative: X-ray was ordered per nurse protocol. Patient has a posterior fracture dislocation of the ankle/trimalleolar. There is no neurovascular demise. Patient's been consented for deep sedation using propofol and closed reduction. She was placed in sugar tong and posterior splint. After the ankles been reduced will contact Dr. Arita who is on-call for podiatry. Preoperative labs were obtained since patient will require open reduction internal fixation. Case discussed with Dr. Arita. She will begin to see patient and place adm ission orders for surgery tomorrow. Lab Data Attestation: I reviewed the patient's lab results. Lab results narrative: CBC and H&H unremarkable. Basic metabolic panels marked for creatinine of 1.62 which is elevated compared to last basic metabolic panel obtained 2018. Labs: Laboratory Results - last 24 hr 05/29/21 05/29/21 22:30 22:30 WBC 7.7 RBC 4.43 Hgb 13.6 Hct 41.1 MCV 92.8 MCH 30.7 MCHC 33.1 RDW Std Deviation 44.4 H RDW Coeff of Jerry 13.1 Plt Count 245 MPV 9.6 Immature Gran % (Auto) 0.300 Neut % (Auto) 58.0 Lymph % (Auto) 28.5 [place] % (Auto) 9.6 Eos % (Auto) 3.1 Baso % (Auto) 0.5 Absolute Neuts (auto) 4.5 Absolute Lymphs (auto) 2.19 Nucleated RBC % 0 Sodium 142 Potassium 3.7 Chloride 108 H Carbon Dioxide 29.0 Anion Gap 5 BUN 27 H Creatinine 1.62 H Estim Creat Clear Calc 26.64 Est GFR (MDRD) Af Amer 40 L Est GFR (MDRD) Non-Af 33 L BUN/Creatinine Ratio 16.7 Glucose 105 Calcium 8.9 Radiography Diagnostic Testing: Clinical Impression(s) from Imaging Studies Ankle X-Ray 05/29/21 22:18 IMPRESSION: 1. Comminuted fracture the posterior tibial malleolus 2. Comminuted medial malleolus fracture 3. Oblique displaced distal fibular fracture 4. Posterior dislocation of the talus from the tibial plafond Electronically Signed: Ry Tom MD at 23:08 EST , Service support , Three-view x-ray of the right ankle interpreted by me as a fracture dislocation, trimalleolar with posterior dislocation. There is comminution of the medial malleolus. The fibula is fractured distal shaft. Post reduction film reveals close to anatomical reduction. 3 views were performed. EKG Initial EKG: Attestation: I personally reviewed and interpreted this EKG as follows: Interpretation: Sinus Rhythm (Normal sinus rhythm rate of 73. MS interval is 148 ms. Cures duration 82 ms. QT duration 400 ms. Geraldine is normal. The EKG is normal.) Procedures Other Procedures Procedure(s): 1 deep sedation 2 closed reduction fracture dislocation right ankle (trimalleolar with posterior dislocation) 3. Splint sugar tong and posterior after reduction using plaster. Patient was informed of risk benefits of using propofol. She denied allergy to soy products or egg products. She has had no prior complication with anesthesia. She last had something to drink approximately 1.45 hours prior to presentation. She has not eaten in greater than 2 hours. Patient was informed that she has a reduction. The reduction would be done by close technique. She was explained risk benefits and necessity to reduce the fracture dislocation. She was given option ask questions regarding deep sedation and reduction none were asked. Patient was administered initially 50 mg propofol by me. The fracture dislocation was reduced by me. She then was placed in a sugar tong splint with the assistance of the nurse. The posterior splint was then applied. Patient's ankle was placed in 90 degrees of dorsi flexion. The plaster was molded to her medial and lateral malleolus. Post reduction film was ordered. Once post reduction film has been completed we will contact podiatry. Start time 2245 Finish time 2256 Discharge Plan Triage Chief Complaint: Lower Extremity Injury ED Provider: Jama Waddell Dx/Rx/DC Orders Clinical Impression: Closed displaced trimalleolar fracture of right ankle Prescriptions: No Action amitriptyline 10 MG tablet 5 mg PO QHS 81 Days Qty: 162 RF: 0 ibuprofen 200 mg capsule 200 mg PO ONCE RF: 0 sodium chloride 1 DROP drops 1 drp RIGHT EYE DAILY RF: 0 latanoprost 1 DROP bottle 1 drp EACH EYE QHS RF: 0 lisinopril-hydrochlorothiazide 1 TABLET tablet 1 tab PO QHS RF: 0 acetaminophen 500 MG tablet 500 - 1,000 mg PO Q6H PRN PRN (Reason: Pain) RF: 0 meloxicam 7.5 MG tablet 7.5 mg PO QHS RF: 0 timolol maleate 1 DROP drops 1 drp EACH EYE DAILY RF: 0 sertraline 50 MG tablet 50 mg PO DAILY RF: 0 esomeprazole magnesium 20 MG capsule,delayed release(DR/EC) 20 mg PO QHS RF: 0 cholecalciferol (vitamin D3) 1,000 UNIT capsule 1,000 unit PO QHS RF: 0 [id number]-C-david-bosw 1 EACH tablet 1 ea PO QHS RF: 0 biotin-keratin 1 EACH tablet 1 ea PO QHS RF: 0 diclofenac sodium 75 mg tablet,delayed release (DR/EC) 75 mg PO BID RF: 0 Primary Care Provider: Nicholas Soares Referrals: Nicholas Soares DO [Primary Care Provider] -
[2021-05-29] MEDS: Ondansetron 4 MG/2 ML Vial IV (22:35)
[2021-05-29] MEDS: Morphine 2 MG/ML Syringe IV (22:35)
[2021-05-29 22:46] VITALS: BP 102/61; BP 136/60; PULSE 63; PULSE 66; PULSE 71; RESP 10; RESP 13; RESP 20; O2SAT 100; O2SAT 97; O2SAT 99
[2021-05-29 22:55] LABS: Anion Gap 5 (5-15); BUN 27 mg/dL (7-18); BUN/Creat Ratio 16.7 RATIO (10-20); Calcium,Total 8.9 mg/dL (8.5-10.1); Chloride 108 mmol/L (98-107); Creatinine, Serum 1.62 mg/dL (0.55-1.02); EST Glomerular Filtration Rate 33 mL/min (>60); Est Glom Filt Rate - Afr Amer 40 mL/min (>60); Estimated Creatinine Clearance 26.64 ml/min; Glucose 105 mg/dL (74-106); Potassium 3.7 mmol/L (3.5-5.1); Sodium Level 142 mmol/L (136-145)
--- NOTE | 2021-05-29 22:56 | RAD_ITS ---
STUDY: X-RAY - RIGHT ANKLE REASON FOR EXAM: Female, 76 years old. Post reduction TECHNIQUE: 3 view(s) of the ankle. COMPARISON: May 29, 2021 FINDINGS: Normal visualized distal tibia and fibula status post successful reduction of previously dislocated talus which now demonstrates normal articulation with the tibial plafond. Status post reduction of the posterior tibial malleolus are major fracture fragments with improved alignment. Status post reduction of the medial malleolus and distal one third fibular shaft fracture fragments with improved alignment, although mild offset persists. Normal visualized talus and calcaneus. The visualized subtalar, talonavicular, calcaneocuboid and tarsal articulations are normal. New splint material is present. RAD/Ankle min 3 Views IMPRESSION: 1. Status post successful reduction of the fracture fragments and previously dislocated talus. Electronically Signed: Ry Tom MD at 23:35 EST , Service support ,
[2021-05-29 22:58] VITALS: BP 102/61; PULSE 65; RESP 20; O2SAT 95
[2021-05-29 23:00] VITALS: BP 98/64; PULSE 59; RESP 16; O2SAT 100
[2021-05-29 23:03] LABS: Absolute Lymphocyte Count 2.19 X10^3/uL (0.83-4.51); Absolute Neutrophil Count 4.5 X10^3/uL (2.0-7.7); Basophil# 0.04 X10^3/uL; Basophil% 0.5 % (0-1); Eosinophil# 0.24 X10^3/uL; Eosinophils% 3.1 % (0-5); Hematocrit 41.1 % (37-47); Hemoglobin 13.6 g/dL (12.0-15.0); Lymphocyte # 2.19 X10^3/ul (0.83-4.51); Lymphocyte % 28.5 % (19-41); Mean Corp Hgb Conc 33.1 g/dL (32-36); Mean Corpuscular Hgb 30.7 pg (27.0-32.0); Mean Corpuscular Volume 92.8 fL (81-99); Mean Platelet Vol. 9.6 fl (6.2-12.0); Monocyte# 0.74 X10^3/uL; Monocyte% 9.6 % (0-10); NRBC Flagged by Analyzer 0 % (0-5); Neutrophil # 4.46 X10^3/uL (2.7-7.7); Platelet Count 245 K/mm3 (150-450); RBC Distribution Width CV 13.1 % (11.6-14.6); RBC Distribution Width SD 44.4 fl (35.1-43.9); Red Blood Count 4.43 M/mm3 (4.2-5.4); White Blood Count 7.7 K/mm3 (4.4-11.0)
[2021-05-29 23:11] VITALS: BP 98/64; PULSE 62; RESP 14; O2SAT 100
[2021-05-29] MEDS: Propofol 200 MG/20 ML Vial IV BOLUS (23:13)
[2021-05-29] MEDS: 0.9% Normal Saline 1,000 ML 150 ML IV (23:13)
[2021-05-29 23:20] VITALS: BP 133/85; PULSE 64; RESP 14; TEMP 36.4; O2SAT 97
[2021-05-29] MEDS: HYDROmorphone 0.5 MG/0.5 ML SYRINGE IV (23:24)
--- NOTE | 2021-05-29 23:45 | HP.PCM_ITS ---
HPI - General General Date of Admission: 05/29/21 HPI Narrative REE WILEY, is a 76 F who presents with a right trimalleolus ankle fracture sustained earlier this evening while she was walking her dog. She does not recall the exact mechanism of injury. She denies loss of consciousness or other injuries. She was unable to bear weight and presented to the emergency room. She denies current paresthesias. Her pain is currently controlled with pain medication. [facility] Medical History (Updated 05/30/21 @ 00:[address] Sophia Arita, REANNA) Arthritis Back pain Hay fever History of hemorrhoids Hypertension Knee pain Neck pain Shoulder pain Home Medications amitriptyline 10 mg tablet 5 mg PO QHS 81 Days #162 06/18/17 [History Last Taken Unknown] acetaminophen 500 - 1,000 mg PO Q6H PRN PRN 06/25/17 [History Last Taken Unknown] biotin-keratin 1 ea PO QHS 06/25/17 [History Last Taken Unknown] cholecalciferol (vitamin D3) 1,000 unit PO QHS 06/25/17 [History Last Taken Unknown] esomeprazole magnesium 20 mg PO QHS 06/25/17 [History Last Taken Unknown] [id number]-[id number]-C-david-bosw 1 ea PO QHS 06/25/17 [History Last Taken Unknown] latanoprost 1 drp EACH EYE QHS 06/25/17 [History Last Taken Unknown] lisinopril-hydrochlorothiazide 1 tab PO QHS 06/25/17 [History Last Taken U nknown] meloxicam 7.5 mg PO QHS 06/25/17 [History Last Taken Unknown] sertraline 50 mg PO DAILY 06/25/17 [History Last Taken Unknown] sodium chloride 1 drp RIGHT EYE DAILY 06/25/17 [History Last Taken Unknown] timolol maleate 1 drp EACH EYE DAILY 06/25/17 [History Last Taken Unknown] ibuprofen 200 mg capsule 200 mg PO ONCE 07/09/17 [History Last Taken Unknown] diclofenac sodium 75 mg PO BID 05/29/21 [History Last Taken Unknown] Allergy/AdvReac Type Severity Reaction Status Date / Time alendronate sodium Allergy Pain in Verified 05/29/21 21:57 [From Fosamax] joints Sulfa (Sulfonamide Allergy Shortness Verified 05/29/21 21:57 Antibiotics) of breath Surgical History S/P ORIF (open reduction internal fixation) fracture Social History (Updated 05/30/21 @ 00:[address] Sophia Arita, DPEarnest) household members: children Smoking Status: Never smoker alcohol intake: never ROS Constitutional Constitutional: Denies chills, fatigue or fever(s) Eyes Eyes: Denies change in vision ENT HEENT: Reports abnormal hearing; Denies nasal congestion or sore throat Cardiovascular Cardiovascular: Denies abdominal pain, claudication, cold extremities or dyspnea Respiratory/Chest Respiratory/Chest: Denies cough Gastrointestinal Gastrointestinal: Reports constipation and diarrhea Musculoskeletal Musculoskeletal: Reports abnormal gait Integumentary Integumentary: Denies rash or wounds Neurologic Neurologic: Reports lack of coordination and paresthesias; Denies frequent falls Psychiatric Psychiatric: Denies anxiety Vital Signs Vital Signs Vital Signs: 05/29/21 21:56 05/29/21 22:46 05/29/21 22:58 Temperature 98.1 F Temperature Source Temporal Pulse Rate 84 65 Pulse Rate [1 (Initial Baseline)] 71 Pulse Rate [2] 63 Pulse Rate [3] 66 Respiratory Rate 16 20 H Respiratory Rate [1 (Initial Baseline)] 10 L Respiratory Rate [2] 13 Respiratory Rate [3] 20 H Blood Pressure 128/77 H 102/61 Blood Pressure [1 (Initial Baseline)] 136/60 H Blood Pressure [2] 136/60 H Blood Pressure [3] 102/61 Blood Pressure Mean 94 74 Pulse Ox 100 95 Oxygen Delivery Method Nasal Cannula Oxygen Delivery Method [1 (Initial Baseline)] Room Air Oxygen Delivery Method [2] Nasal Cannula Oxygen Delivery Method [3] Nasal Cannula Oxygen Flow Rate (L/min) 2 Oxygen Flow Rate (L/min) [1 (Initial Baseline)] 2 Oxygen Flow Rate (L/min) [2] 3 Oxygen Flow Rate (L/min) [3] 3 05/29/21 23:00 05/29/21 23:11 05/29/21 23:20 Temperature 97.5 F L Temperature Source Temporal Pulse Rate 59 L 62 64 Pulse Rate [1 (Initial Baseline)] Pulse Rate [2] Pulse Rate [3] Respiratory Rate 16 14 14 Respiratory Rate [1 (Initial Baseline)] Respiratory Rate [2] Respiratory Rate [3] Blood Pressure 98/64 98/64 133/85 H Blood Pressure [1 (Initial Baseline)] Blood Pressure [2] Blood Pressure [3] Blood Pressure Mean 75 101 Pulse Ox 100 100 97 Oxygen Delivery Method Room Air Room Air Room Air Oxygen Delivery Method [1 (Initial Baseline)] Oxygen Delivery Method [2] Oxygen Delivery Method [3] Oxygen Flow Rate (L/min) Oxygen Flow Rate (L/min) [1 (Initial Baseline)] Oxygen Flow Rate (L/min) [2] Oxygen Flow Rate (L/min) [3] Weight Weight: 58.967 kg Body Mass Index (BMI) 28.1 Physical Exam Const alert and oriented x3 General Appearance: cooperative HEENT normocephalic Head and Scalp: atraumatic External Ear: external ears normal Eyes PERRL and EOMs intact bilaterally Neck full ROM Resp normal respiratory effort and clear to auscultation bilaterally Cardio regular rate and regular rhythm Extremity Extremity Narrative: No calf tenderness palpable dp bilateral capillary fill time less than 3 seconds to all digits bilateral foot Muscle wasting noted Active range of motion all digits bilateral Pain to palpate medial and lateral ankle fracture sites. [facility] help General Extremity: edema and no tenderness to palpation of joints or extremities; Negative for cyanosis Skin Skin Narrative: Right lower extremity posterior mold splint intact with limb in rectus position. Compartments remain soft to palpate bilateral lower extremities General Skin Exam: Negative for erythema Neuro Neuro Narrative: Epicritic sensation is intact via light touch to bilateral digits and forefoot dermatomes. Psych cooperative and affect normal Results Lab / Micro Data Result Diagrams: 05/29/21 22:30 05/29/21 22:30 Labs: Laboratory Results - last 24 hr 05/29/21 22:30: WBC 7.7, RBC 4.43, Hgb 13.6, Hct 41.1, MCV 92.8, MCH 30.7, MCHC 33.1, RDW Std Deviation 44.4 H, RDW Coeff of Jerry 13.1, Plt Count 245, MPV 9.6, Immature Gran % (Auto) 0.300, Neut % (Auto) 58.0, Lymph % (Auto) 28.5, [place] % (Auto) 9.6, Eos % (Auto) 3.1, Baso % (Auto) 0.5, Absolute Neuts (auto) 4.5, Absolute Lymphs (auto) 2.19, Nucleated RBC % 0 05/29/21 22:30: Sodium 142, Potassium 3.7, Chloride 108 H, Carbon Dioxide 29.0, Anion Gap 5, BUN 27 H, Creatinine 1.62 H, Estim Creat Clear Calc 26.64, Est GFR (MDRD) Af Amer 40 L, Est GFR (MDRD) Non-Af 33 L, BUN/Creatinine Ratio 16.7, Glucose 105, Calcium 8.9 Micro: Microbiology 05/29/21 22:44 Nasal Secretion SARS-CoV-2 Antigen (Rapid) - Final Radiology Impression Ankle X-Ray 05/29/21 22:18 IMPRESSION: 1. Comminuted fracture the posterior tibial malleolus 2. Comminuted medial malleolus fracture 3. Oblique displaced distal fibular fracture 4. Posterior dislocation of the talus from the tibial plafond Electronically Signed: Ry Tom MD at 23:08 EST , Service support , Chest X-Ray 05/29/21 22:26 IMPRESSION: Degenerative changes, as described above. No demonstrated acute cardiopulmonary process. Electronically Signed: Ry Tom MD at 23:33 EST , Service support , Ankle X-Ray 05/29/21 22:56 IMPRESSION: 1. Status post successful reduction of the fracture fragments and previously dislocated talus. Electronically Signed: Ry Tom MD at 23:35 EST , Service support , Assessment & Plan Assessment/Plan (1) Closed displaced trimalleolar fracture of right ankle: (2) Right ankle pain: (3) Walking difficulty due to ankle and foot: PLAN: I reviewed and discussed her case. She had a fall this evening and sustained a closed trimalleolus ankle fracture. This was successfully reduced in the emergency room however still considered an unstable fracture pattern. Her x- rays are reviewed demonstrating comminuted distal spiral oblique fibula fracture and medial malleolus fracture and posterior malleolus fracture. I recommend surgical intervention including likely open reduction internal fixation and possible external fixation if skin envelope is too compromised upon splint removal. A CT scan was ordered for preoperative planning. Her diagnostic data including CBC and CMP were reviewed without gross abnormalities. Vitamin D order was also placed that she if she is deficient. Supplementation may be necessary. I recommend preoperative chest x-ray and EKG as well. Hospitalist will be asked in consult for preoperative medical s creening. Dr. Valero was contacted and input is appreciated. Recommend holding DVT prophylaxis medication until after surgery. The patient understands she will work with physical and occupational therapy after surgery to determine safe discharge planning. She is amendable to proceed forward with this plan. Pain medications ordered prn. Preoperative indications, planned procedure, benefits, risk, anticipated healing time and management were reviewed. The patient understands and elects proceed with surgery at this time. No guarantees were made. The patient understands risk and complications include but are not limited to following: pain, swelling, scarring, need for further surgery, tendon contracture, transfer lesion, hardware failure, arthritis, need for further surgery, delayed or nonhealing, infection, blood clot, allergic reaction, loss of limb, function, or life. The informed surgical limb and consent will need to be signed. I answered all the patient's questions. Pending her CT results, operating room availability, and medical clearance surgical intervention is tentatively planned for tomorrow afternoon. Please do not hesitate to call if you have any questions. Sophia Arita DPM, [facility] [phone]
[2021-05-30] VITALS (12 sets, daily range): BP systolic 95–123; BP diastolic 54–72; PULSE 63–82; RESP 16–69; TEMP 36.4–37.3; O2SAT 93–98; BMI 28.1
--- NOTE | 2021-05-30 01:46 | CON.PCM.HO_ITS ---
Assessment & Plan Assessment/Plan (1) Closed displaced trimalleolar fracture of right ankle: (2) Irritable bowel syndrome: (3) Hypertension: PLAN: 1 trimalleolar fracture right ankle?reduced in the emergency room and to have surgery in the morning by Dr. Arita. Will repeat CBC BMP in the morning EKG is been ordered however at this time there appear to be no interventions necessary to optimize risk prior to surgery. 2. Irritable bowel syndrome may resume routine medicines. She is taking a tricyclic antidepressant for this at this time when she is able to take p.o. medication 3. Hypertension will need to be monitored perioperatively and resume her routine medication with an GALA inhibitor and diuretic at discharge. 4. DVT prophylaxis would recommend patient be on Lovenox postoperative to reduce risk HPI Consult Data Date of Consult: 05/30/21 HPI Narrative HPI Narrative: REE WILEY, is a 76 F who presents to the emergency room with a right ankle fracture after walking her dog and falling and landing with her right leg in a hole in the ground. The patient suffered a trimalleolar fracture which was reduced in the emergency room but will require surgical intervention. The patient has significant past medical history of irritable bowel syndrome, hypertension and osteoporosis. 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 She states she is in overall good health with no chest pain, shortness of breath, fever or chills and/or nausea vomiting or diarrhea at this present time. [facility] Medical History (Updated 05/30/21 @ 01:[address] Adiel Persaud MD) Arthritis Back pain Depression Hay fever History of hemorrhoids Hypertension Knee pain Neck pain Shoulder pain Home Medications amitriptyline 10 mg tablet 5 mg PO QHS 81 Days #162 06/18/17 [History Last Taken Unknown] acetaminophen 500 - 1,000 mg PO Q6H PRN PRN 06/25/17 [History Last Taken Unknown] biotin-keratin 1 ea PO QHS 06/25/17 [History Last Taken Unknown] cholecalciferol (vitamin D3) 1,000 unit PO QHS 06/25/17 [History Last Taken Unknown] esomeprazole magnesium 20 mg PO QHS 06/25/17 [History Last Taken Unknown] uurmkpcd-doik-[id number]-C-david-bosw 1 ea PO QHS 06/25/17 [History Last Taken Unknown] latanoprost 1 drp EACH EYE QHS 06/25/17 [History Last Taken Unknown] lisinopril-hydrochlorothiazide 1 tab PO QHS 06/25/17 [History Last Taken Unknown] meloxicam 7.5 mg PO QHS 06/25/17 [History Last Taken Unknown] sertraline 50 mg PO DAILY 06/25/17 [History Last Taken Unknown] sodium chloride 1 drp RIGHT EYE DAILY 06/25/17 [History Last Taken Unknown] timolol maleate 1 drp EACH EYE DAILY 06/25/17 [History Last Taken Unknown] ibuprofen 200 mg capsule 200 mg PO ONCE 07/09/17 [History Last Taken Unknown] diclofenac sodium 75 mg PO BID 05/29/21 [History Last Taken Unknown] Allergy/AdvReac Type Severity Reaction Status Date / Time alendronate sodium Allergy Pain in Verified 05/29/21 21:57 [From Fosamax] joints Sulfa (Sulfonamide Allergy Shortness Verified 05/29/21 21:57 Antibiotics) of breath Surgical History (Updated 05/30/21 @ 01:44 by Vero Brady) H/O knee surgery History of hip surgery History of hysterectomy S/P ORIF (open reduction internal fixation) fracture Social History (Updated 05/30/21 @ 00:[address] Sophia Arita, DPM) household members: children Smoking Status: Never smoker alcohol intake: never ROS Constitutional Constitutional: Denies anorexia Eyes Eyes: Denies blurry vision ENT HEENT: Denies abnormal hearing Cardiovascular Cardiovascular: Denies chest pain or dyspnea on exertion Respiratory/Chest Respiratory/Chest: Denies cough Gastrointestinal Gastrointestinal: Denies abdominal pain Genitourinary Genitourinary: Denies burning urination Musculoskeletal Musculoskeletal: Reports joint pain Psychiatric Psychiatric: Denies anxiety Physical Exam Const oriented x3 General Appearance: cooperative HEENT normocephalic and head/scalp atraumatic Eyes PERRL and EOMs intact bilaterally Neck no lymphadenopathy Resp normal respiratory effort, no retractions and no use of accessory muscles Cardio regular rate, regular rhythm, S1 normal heart sound and S2 normal heart sound GI normal to inspection, nondistended, normoactive bowel sounds Extremity Extremity Narrative: right ankle splinted Skin skin turgor normal Neuro oriented x3 Psych affect normal Lab / Micro Data Result Diagrams: 05/29/21 22:30 05/29/21 22:30 Labs: Laboratory Results - last 24 hr 05/29/21 22:30: WBC 7.7, RBC 4.43, Hgb 13.6, Hct 41.1, MCV 92.8, MCH 30.7, MCHC 33.1, RDW Std Deviation 44.4 H, RDW Coeff of Jerry 13.1, Plt Count 245, MPV 9.6, Immature Gran % (Auto) 0.300, Neut % (Auto) 58.0, Lymph % (Auto) 28.5, [place] % (Auto) 9.6, Eos % (Auto) 3.1, Baso % (Auto) 0.5, Absolute Neuts (auto) 4.5, Absolute Lymphs (auto) 2.19, Nucleated RBC % 0 05/29/21 22:30: Sodium 142, Potassium 3.7, Chloride 108 H, Carbon Dioxide 29.0, Anion Gap 5, BUN 27 H, Creatinine 1.62 H, Estim Creat Clear Calc 26.64, Est GFR (MDRD) Af Amer 40 L, Est GFR (MDRD) Non-Af 33 L, BUN/Creatinine Ratio 16.7, Glucose 105, Calcium 8.9 Micro: Microbiology 05/29/21 22:44 Nasal Secretion SARS-CoV-2 Antigen (Rapid) - Final Radiology Impression Ankle X-Ray 05/29/21 22:18 IMPRESSION: 1. Comminuted fracture the posterior tibial malleolus 2. Comminuted medial malleolus fracture 3. Oblique displaced distal fibular fracture 4. Posterior dislocation of the talus from the tibial plafond Electronically Signed: Ry Tom MD at 23:08 EST , Service support , Chest X-Ray 05/29/21 22:26 IMPRESSION: Degenerative changes, as described above. No demonstrated acute cardiopulmonary process. Electronically Signed: Ry Tom MD at 23:33 EST , Service support , Ankle X-Ray 05/29/21 22:56 IMPRESSION: 1. Status post successful reduction of the fracture fragments and previously dislocated talus. Electronically Signed: Ry Tom MD at 23:35 EST , Service support , Lower Extremity CT 05/30/21 23:46 IMPRESSION: Acute trimalleolar fracture. No other acute or healing fracture or malalignment. Associated mild widening of the medial aspect of the ankle mortise on a posttraumatic basis. Electronically Signed: Noel Patterson MD at 1:27 EST Tel , Service support , Charges/Coding Visit Charges Inpatient E&M: 52248 Init Hosp L2
--- NOTE | 2021-05-30 03:00 | PCS.PANDOC ---
PANDEMIC DOCUMENTATION INITIATED: Date: 05/30/21 Time: 0138
[2021-05-30 04:31] LABS: Absolute Lymphocyte Count 1.39 X10^3/uL (0.83-4.51); Absolute Neutrophil Count 6.6 X10^3/uL (2.0-7.7); Basophil# 0.02 X10^3/uL; Basophil% 0.2 % (0-1); Eosinophil# 0.14 X10^3/uL; Eosinophils% 1.5 % (0-5); Hematocrit 37.9 % (37-47); Hemoglobin 12.3 g/dL (12.0-15.0); Lymphocyte # 1.39 X10^3/ul (0.83-4.51); Lymphocyte % 15.1 % (19-41); Mean Corp Hgb Conc 32.5 g/dL (32-36); Mean Corpuscular Hgb 30.5 pg (27.0-32.0); Mean Platelet Vol. 9.5 fl (6.2-12.0); Monocyte# 1.01 X10^3/uL; NRBC Flagged by Analyzer 0 % (0-5); Neutrophil # 6.61 X10^3/uL (2.7-7.7); Neutrophil % 71.8 % (47-70); Platelet Count 198 K/mm3 (150-450); RBC Distribution Width CV 13.1 % (11.6-14.6); RBC Distribution Width SD 45.5 fl (35.1-43.9); Red Blood Count 4.03 M/mm3 (4.2-5.4); White Blood Count 9.2 K/mm3 (4.4-11.0)
[2021-05-30 04:45] LABS: Anion Gap 2 (5-15); BUN 25 mg/dL (7-18); Calcium,Total 8.2 mg/dL (8.5-10.1); Chloride 108 mmol/L (98-107); Creatinine, Serum 1.78 mg/dL (0.55-1.02); EST Glomerular Filtration Rate 29 mL/min (>60); Est Glom Filt Rate - Afr Amer 35 mL/min (>60); Estimated Creatinine Clearance 24.25 ml/min; Glucose 109 mg/dL (74-106); Potassium 4.3 mmol/L (3.5-5.1); Sodium Level 140 mmol/L (136-145)
--- NOTE | 2021-05-30 09:43 | CASEMGMT ---
SW received a call from Jaylin with TCU. The plan for patient is for her to go to [facility] after her surgery. Kit is waiving pre-certs. Marisel CHARLES
--- NOTE | 2021-05-30 12:36 | PCM.HOSP.N ---
Hospitalist Note Patient was seen in pet adoption counselor by Dr. Persaud, hospitalist consultation was done. Patient admitted under podiatry service for right closed trimalleolar ankle fracture and plan for surgical intervention, open reduction internal fixation versus external fixation. On review of morning labs, BUN/creatinine elevated 25/1.78 more than from baseline. Anion gap -2, sodium 140, chloride 108. IV fluid normal saline changed to Ringer lactate.
--- NOTE | 2021-05-30 13:40 | RAD_ITS ---
STUDY: X-RAY - RIGHT ANKLE REASON FOR EXAM: Female, 76 years old. FX TECHNIQUE: 74 dynamic fluoroscopic view(s) of the ankle. COMPARISON: Right ankle x-ray dated May 29, 2021 FINDINGS: The images shows surgical instrumentation of the lower leg/ankle pain with subsequent placement of a cortical plate-screw construct of the distal one third fibular fixating and reducing the fracture fragments. There is also newly placed syndesmotic osteotomy track with a small cortical plate at the proximal aspect of the medial malleolus. RAD/Ankle min 3 Views IMPRESSION: Hardware fixation as above Electronically Signed: Ry Tom MD at 16:06 EST , Service support ,
[2021-05-30] MEDS: Lactated Ringers 1,000 ML 100 ML IV (14:00)
[2021-05-30 14:25] LABS: Vitamin D,25 Hydroxy 32.7 ng/mL
--- NOTE | 2021-05-30 15:12 | PCM.OPRPT ---
Problems Associated Problem List Diagnoses (1) Closed displaced trimalleolar fracture of right ankle: (2) Right ankle pain: Report of Operation Date of Procedure: 05/30/21 Pre-Operative Diagnosis: Right trimalleolus ankle fracture Post-Operative Diagnosis: Right trimalleolus ankle fracture Surgery/Procedure Performed:: right open reduction internal fixation of trimalleolus ankle fracture with syndesmosis repair included Description of Surgical Findings:: Hemostasis: Well-padded pneumatic right thigh tourniquet, 305 mmHg, 45 minutes Materials: Arthrex one third tubular reconstructive plate, two 3.5 cancellous screw, one 3.5 cortical screw, two 3.5 locking screws, one syndesmosis tight rope, 3-0 Vicryl, 4-0 nylon Complications: None Specimens: None The patient tolerated the procedure and anesthesia well. The patient was transported to the PACU with vital signs stable and vascular status intact to the surgical limb. To ice and elevate for pain and inflammation management. Postoperative x-rays were reviewed prior to leaving the operating room. Fracture and deformity correction noted with internal fixation. The hardware is in the desired trajectory and position. The ankle mortise is well aligned. Fluoroscopic live stress test were also reviewed prior to leaving including cotton test, dorsiflexion external rotation and stress eversion without gross abnormality or continued instability. No acute injuries were noted. Postoperative orders were entered electronically. Surgeon: Sophia Arita bilingual case manager: None (Leo Luther, PGY3, DPM) Type of Anesthesia: General/Regional (Right lower extremity regional block provided by anesthesia team) Specimen's removed: none Estimated Blood Loss (mL): <100 mL Description of Procedure: Indications: This 76-year-old female with significant past medical history of hypertension, irritable bowel syndrome, reduced bone loss on Fosamax sustained an ankle fracture on 05-29-21 while she slipped into a hole while walking her dog. She was immediately unable to bear weight and presented to the emergency room in which this was reduced and she was admitted for surgical intervention pain control. X-rays demonstrate a spiral oblique distal fibula fracture above the level of the ankle and evidence of medial malleolus fracture with suspected comminution and a posterior fragment. CT scan confirmed this and it also appears there is a posterior rim fracture consistent with even a light pilon and the medial malleolus fracture is very irregular with both vertical and horizontal comminuted portions. Her neurovascular status is intact and there is no fracture blisters or evidence of compartment syndrome. Preoperative H&P were reviewed including his diagnostic data. There is no gross abnormalities noted with labs for preoperative EKG. Preoperative indications, planned procedure, benefits, risk, anticipated healing time and management were reviewed. The patient understands and elects proceed with surgery at this time. No guarantees were made. The patient understands risk and complications include but are not limited to following: pain, swelling, scarring, need for further surgery, tendon contracture, transfer lesion, hardware failure, arthritis, need for further surgery, delayed or nonhealing, infection, blood clot, allergic reaction, loss of limb, function, or life. The informed surgical limb and consent were signed. Hospitalist preoperative evaluation is noted and appreciated. I answered all the patient's questions. The patient also understands there is an inherent risk with being in the hospital and undergoing a procedure during the time of COVID-19 pandemic. The patient understands precautions are being taken to prevent transmission. This patient understands the benefits and risks of having a procedure at this time versus waiting in which the benefits are reasonable at this time. Procedure in detail: The patient was transported to the operating room via cart and placed on the operating room table in the supine position. Final verification of the patient, surgery, limb designation was performed via the timeout procedure. IV antibiotics were administered by the anesthesia team. Preoperative right lower extremity regional block was administered by the anesthesia team. A well-padded pneumatic right thigh tourniquet was placed. The right lower extremity was prepped and draped in the usual aseptic manner. An Esmarch was used to exsanguinate the limb and the tourniquet was inflated at this time. Surgery proceeded as the following: Attention was first directed to the lateral ankle in which a 7 cm linear incision was made through the skin. Blunt dissection was performed down to the fracture hematoma taking care to identify, protect, and retract all neurovascular structures at this point and throughout the remainder of surgery. Periosteum was debrided from the fracture fibula site that was invaginated to allow proper mobilization and reduction. This was mobilized and held temporarily with a yrrcd-of-smger reduction clamp. Proper AO fixation technique was utilized to apply hardware. Next, a one third tubular reconstructive Arthrex fibula plate was bent and applied to span the fracture. This was secured distally with cancellous screws and proximally with cortical and locking screws. This fracture fragment is also slightly comminuted and in anatomic alignment. Additional lag screw technique was not deemed necessary due to fragility. Next a syndesmosis tight rope was applied according to standard protocol taking care to reduce with hand tightness and to stay parallel to the joint line approximately 1.5 cm proximal to the ankle mortise. It is noted the fibula length is maintained and the rotation was also improved. At this time the medial malleolus fracture fragments appear to be in excellent alignment including the adjacent joint surface and additional internal fixation was not pursued at this time. Her ankle joint was taken through smooth gliding range of motion without crepitus. Stress test and post reduction and placement of internal fixation x-rays were reviewed as noted. The wounds were copiously irrigated with normal saline. The tourniquet was deflated at this time and no pulsatile bleeding was noted. Minimal electrocauterization and direct pressure were used to maintain hemostasis. Deep closure was performed with Vicryl and the skin was reapproximated with nylon utilizing horizontal mattress technique and no touch technique. A postoperative dressing consisting of Adaptic soaked in Betadine, 4 x 4 gauze, Kerlix, and abdominal pads were applied. Next, a well-padded posterior mold with sugar tong splint were additionally applied with the right lower extremity in a rectus position. After procedure: The patient tolerated the procedure and anesthesia well. She was transferred to the PACU with vital signs stable and vascular status intact to the right lower extremity. She will be transitioned to the transitional care unit [facility] facility upon continued stability and will be assessed with physical and occupational therapy tomorrow. I recommend she maintains a nonweightbearing status. To ice and elevate for pain and inflammation management. Pain medication will be ordered once she arrives in the transitional care unit. Postoperative x-rays were reviewed prior to leaving the operating room as noted. I recommend she continue the vitamin D supplementation and Fosamax to optimize bone healing. Postoperative orders were entered electronically. Sophia Arita DPM, [facility] Grafts/Implants Used: arthrex Complications none Admit VTE Documentation VTE Present on Admission: No VTE Mechan Device Prophylaxis: SCD's VTE Pharm Prophylaxis ordered?: Yes
--- NOTE | 2021-05-30 15:15 | PCM.DC ---
Discharge Instructions Follow Up Care Test Results: Test results from this visit will be discussed in further detail at your follow-up appointment, if applicable. Discharge Plan Admission Admit Date/Time: 05/29/21 23:40 Primary Reason for Your Visit: right ankle fracture Attending Provider: Sophia Arita Primary Care Provider: Nicholas Soares Consulting Providers: Adiel Persaud Instructions Additional Instructions / Restrictions: Maintain right non weightbearing status right elevate right limb Use assistive device Discharge Orders/Prescriptions Prescriptions: No Action amitriptyline 10 MG tablet 5 mg PO QHS 81 Days Qty: 162 RF: 0 ibuprofen 200 mg capsule 200 mg PO ONCE RF: 0 sodium chloride 1 DROP drops 1 drp RIGHT EYE DAILY RF: 0 latanoprost 1 DROP bottle 1 drp EACH EYE QHS RF: 0 lisinopril-hydrochlorothiazide 1 TABLET tablet 1 tab PO QHS RF: 0 acetaminophen 500 MG tablet 500 - 1,000 mg PO Q6H PRN PRN (Reason: Pain) RF: 0 meloxicam 7.5 MG tablet 7.5 mg PO QHS RF: 0 timolol maleate 1 DROP drops 1 drp EACH EYE DAILY RF: 0 sertraline 50 MG tablet 50 mg PO DAILY RF: 0 esomeprazole magnesium 20 MG capsule,delayed release(DR/EC) 20 mg PO QHS RF: 0 cholecalciferol (vitamin D3) 1,000 UNIT capsule 1,000 unit PO QHS RF: 0 [id number]-C-david-bosw 1 EACH tablet 1 ea PO QHS RF: 0 biotin-keratin 1 EACH tablet 1 ea PO QHS RF: 0 diclofenac sodium 75 mg tablet,delayed release (DR/EC) 75 mg PO BID RF: 0 Referrals / Follow Up: Sophia Arita DPM [STAFF PHYSICIAN] - In 1 Week Nicholas Soares DO [Primary Care Provider] - Disposition Disposition (needs filled in before D/C Order can be placed): Inpatient Rehab Unit/Facility
--- NOTE | 2021-05-30 15:25 | RAD_ITS ---
STUDY: X-RAY - RIGHT ANKLE REASON FOR EXAM: Female, 76 years old. Status post ORIF ankle fracture. TECHNIQUE: 3 view(s) of the ankle. COMPARISON: 05/29/2021 radiographs. FINDINGS: Interval ORIF of the distal fibular fracture, secured with a lateral plate and several screws. The hardware is intact and alignment is anatomic. The fracture line remains visible. An osteotomy tunnel traverses the distal tibial shaft with a metallic anchor along the medial aspect of this tunnel. Mildly displaced medial and posterior malleoli are fractures remain visible. No new fractures are evident. Underlying degenerative changes similar to prior. RAD/Ankle min 3 Views IMPRESSION: Interval ORIF with no evidence of complication. Electronically Signed: Jw Pacheco MD at 4:32 EST Tel , Service support ,
--- NOTE | 2021-05-30 15:32 | PCM.TXEXTCAR ---
Diet 05/30/21 15:10 Diet: Regular - General Dietary Modifications:: Sodium Restricted Is pt able to select menu?: Yes Wound(s) RIGHT ANKLE: Wound Type: Surgical Incision Problem/Diagnosis (1) Closed displaced trimalleolar fracture of right ankle: Status: Acute (2) Right ankle pain: Status: Acute Allergies/Procedures Done in Hospital Allergies alendronate sodium [From Fosamax] Allergy (Verified 05/29/21 21:57) Pain in joints Sulfa (Sulfonamide Antibiotics) Allergy (Verified 05/29/21 21:57) Shortness of breath Type of Care/Length of Stay Estimated LOS: Convalescent Care Less Than 30 days Type of Care Needed: Skilled Rehab Potential: Good Prognosis: Good Additional Orders/Day of Discharge Day of Discharge: 05/30/21 Discharge Plan Admission Admit Date/Time: 05/29/21 23:40 Primary Reason for Your Visit: right ankle fracture Attending Provider: Sophia Arita Primary Care Provider: Nicholas Soares Consulting Providers: Adiel Persaud Instructions Additional Instructions / Restrictions: Maintain right non weightbearing status right elevate right limb Use assistive device Discharge Orders/Prescriptions Prescriptions: No Action amitriptyline 10 MG tablet 5 mg PO QHS 81 Days Qty: 162 RF: 0 ibuprofen 200 mg capsule 200 mg PO ONCE RF: 0 sodium chloride 1 DROP drops 1 drp RIGHT EYE DAILY RF: 0 latanoprost 1 DROP bottle 1 drp EACH EYE QHS RF: 0 lisinopril-hydrochlorothiazide 1 TABLET tablet 1 tab PO QHS RF: 0 acetaminophen 500 MG tablet 500 - 1,000 mg PO Q6H PRN PRN (Reason: Pain) RF: 0 meloxicam 7.5 MG tablet 7.5 mg PO QHS RF: 0 timolol maleate 1 DROP drops 1 drp EACH EYE DAILY RF: 0 sertraline 50 MG tablet 50 mg PO DAILY RF: 0 esomeprazole magnesium 20 MG capsule,delayed release(DR/EC) 20 mg PO QHS RF: 0 cholecalciferol (vitamin D3) 1,000 UNIT capsule 1,000 unit PO QHS RF: 0 pnbdzctd-dkfj-[id number]-C-david-bosw 1 EACH tablet 1 ea PO QHS RF: 0 biotin-keratin 1 EACH tablet 1 ea PO QHS RF: 0 diclofenac sodium 75 mg tablet,delayed release (DR/EC) 75 mg PO BID RF: 0 Referrals / Follow Up: Sophia Arita DPM [STAFF PHYSICIAN] - In 1 Week Nicholas Soares DO [Primary Care Provider] - Disposition Disposition (needs filled in before D/C Order can be placed): Group Home Facility
--- NOTE | 2021-05-30 16:03 | CASEMGMT ---
SW received patient's orders for discharge to TCU. SW tubed them to [facility] TCU. SW called PACU and the plan is to send patient directly to TCU from PACU. SW attempted to call patient's daughter Joyce, but her number is no longer in service. SW attempted to call patient's granddaughter, but a recording came on indicating she is not accepting calls right now. Plan: [facility] TCU under skilled level of care. Marisel CHARLES
--- NOTE | 2021-05-30 17:22 | SUR.PHASEII ---
PATIENT TRANSFERRED TO TCU 14, BELONGINGS WITH PATIENT. IV HEP LOCK. FAMILY NOTIFIED OF TRANSFER. NURSE IN ROOM WITH PATIENT.
--- NOTE | 2021-05-30 23:46 | CT_ITS ---
EXAM: CT RIGHT LOWER EXTREMITY WITHOUT INTRAVENOUS CONTRAST, ANKLE CLINICAL INDICATION: preop planning for trimal ankle fracture TECHNIQUE: Helically acquired images were obtained of the right ankle without intravenous contrast. 2-D reformats were performed by the technologist. CTDI vol (mGy): 15 DLP vol (mGy-cm): [address] exam was performed using one or more of the following dose reduction techniques: automated exposure control, adjustment of the mA and/or kV according to patient size, and/or use of iterative reconstruction technique. This report was created using [employer] technology. COMPARISON: None. FINDINGS: BONES/JOINTS: Acute trimalleolar fracture. No other acute or healing fracture or malalignment. Associated widening of the medial aspect of the ankle mortise. Large os navicular with degenerative changes at the synchondrosis. Severe osteoarthrosis the first metatarsophalangeal joint No other unusual lytic or sclerotic lesions of bone. Large plantar and posterior calcaneal enthesophytes. Small posterior ventricular joint effusion. Moderate posterior subtalar effusion. SOFT TISSUES: Tendons are intact. No soft tissue swelling or gas. No radiopaque foreign body. CT/Extremity Lower without Contra IMPRESSION: Acute trimalleolar fracture. No other acute or healing fracture or malalignment. Associated mild widening of the medial aspect of the ankle mortise on a posttraumatic basis. Electronically Signed: Noel Patterson MD at 1:27 EST Tel , Service support ,
--- NOTE | 2021-06-06 06:46 | PCM.PROGNOTE ---
Subjective Subjective This 76-year-old female was seen one week status post open reduction and internal fixation of right ankle fracture. She denies fever, chill, nausea, vomiting, shortness of breath, chest pain, or calf pain. Her pain is controlled well. She is maintained a nonweightbearing status with her splint intact. Objective Data Objective Data Vital Signs: Vital Signs Temp Pulse Resp BP Pulse Ox 97.6 F L 71 16 103/56 L 93 05/30/21 16:08 05/30/21 16:45 05/30/21 16:45 05/30/21 16:45 05/30/21 16:45 Oxygen Flow Rate (L/min) [3] 3 Oxygen Flow Rate (L/min) [2] 3 Oxygen Flow Rate (L/min) [1 ( 2 Initial Baseline)] Oxygen Flow Rate (L/min) 2 Oxygen Delivery Method [3] Nasal Cannula Oxygen Delivery Method [2] Nasal Cannula Oxygen Delivery Method [1 ( Room Air Initial Baseline)] Oxygen Delivery Method Room Air Weight: 58.967 kg Body Mass Index (BMI) 28.1 Lab / Micro Data Result Diagrams: 05/30/21 04:18 05/30/21 04:18 Micro: Microbiology 05/29/21 22:44 Nasal Secretion SARS-CoV-2 Antigen (Rapid) - Final Physical Exam Const alert and oriented x3 General Appearance: cooperative Extremity Extremity Narrative: No calf tenderness (negative jayshree and shah signs bilateral) palpable dp bilateral capillary fill time less than 3 seconds to all digits bilateral foot Muscle wasting noted Active range of motion all digits bilateral Pain to palpate repaired medial and lateral ankle fracture sites post operative as expected. smooth passive range of motion of ankle in sagittal plane noted without crepitus compartments remain soft to palpate right lower extremity AROM digits right foot noted edema scant right lower extremity General Extremity: Negative for cyanosis Skin Skin Narrative: Right lower extremity posterior mold splint intact with limb in rectus position. Atrophic and thin skin. Incision is well aligned and coapted with sutures in place. There is no gapping, necrosis, purulence. There is mild to moderate hematogenous drainage on her inner dressing layers only. No active bleeding noted. No erythema, streaking, purulence, signs of infection, or odor. General Skin Exam: Negative for erythema Neuro Neuro Narrative: Epicritic sensation is intact via light touch to bilateral digits and forefoot dermatomes. Psych cooperative and affect normal Assessment & Plan Assessment/Plan (1) Closed displaced trimalleolar fracture of right ankle: (2) Right ankle pain: PLAN: This patient is approximately 1 week status post right ankle fracture open reduction internal fixation. No signs of infection are noted. She is doing well and is progressing as expected. Anticipated healing time was reviewed including 8 to 12 weeks of nonweightbearing status. To continue with physical and occupational therapy while in the transitional care unit. To maintain a nonweightbearing status. She was advised to keep her splint and dressing clean, dry, and intact. An updated dressing consisting of Betadine gauze, abdominal pad, Kerlix were applied. Ian wraps were applied for edema control and she was advised to elevate. To use assistive device. I will follow her weekly while in house. Please do not hesitate to call if you have any questions. Sophia Arita DPM, [facility] [phone]
== END 2021-05-30 17:23 | disposition skilled nursing facility (03) | DRG 494 ==
LOC: ED 23:13 → PCU 05-30 00:30
PROVIDERS: Family Medicine; Admitting Provider Podiatrist; Emergency Provider Emergency Medicine; PCP Student in an Organized Health Care Education/Training Program; Visit Provider Podiatrist
PROC: (CPT 27814; principal; 2021-05-30 13:10)
DX: S82.431A Displaced oblique fracture of shaft of right fibula, initial encounter for closed fracture (principal); E55.9 Vitamin D deficiency, unspecified; S82.851A Displaced trimalleolar fracture of right lower leg, initial encounter for closed fracture; I10 Essential (primary) hypertension; W19.XXXA Unspecified fall, initial encounter; K58.9 Irritable bowel syndrome, unspecified; Y93.K1 Activity, walking an animal; Y92.9 Unspecified place or not applicable; Z79.899 Other long term (current) drug therapy; F32.A Depression, unspecified; K21.9 Gastro-esophageal reflux disease without esophagitis
CPT/HCPCS: 27816; 27822; 01480; 64445; 36415; 71045; 73610; 73700; 76000; 80048; 82306; 85025; 87426; 93005; 96361; 96374; 96375; 99152; 99221; 99285; C1713; A4216; G0378; J2405

== ENCOUNTER 2021-05-30 17:27 | Inpatient (IN) | payer MEDICARE, SELFPAY ==
[2021-05-30 17:28] VITALS: BMI 28.1
[2021-05-30 18:45] VITALS: BP 115/60; PULSE 82; RESP 16; TEMP 36.7; O2SAT 95
--- NOTE | 2021-05-30 20:06 | HP.PCM_ITS ---
HPI - General General Date of Admission: 05/30/21 HPI Narrative 05/29/2021 REE WILEY, is a 76 Female who presents to [facility] Emergency Department. Ankle injury walking dog. Right ankle deformity. X-ray showed trimalleolar posterior fracture dislocation right ankle. Reduced under Propofol. Sugar tone, posterior splint applied. 05/29/[address]. CT right ankle. Dr. Arita recommended ORIF, possible external fixation. Pain medication ordered. Prepare for surgery. 05/30/2021 Dr. Arita performed right open reduction internal fixation of trimalleolus ankle fracture with syndesmosis repair included. 05/30/2021 Admit to TCU with debility, here for rehabilitation, strengthening, prior to discharge home with daughter. [facility] Medical History Arthritis Back pain Depression Hay fever History of hemorrhoids Hypertension Knee pain Neck pain Shoulder pain Home Medications amitriptyline 10 mg tablet 5 mg PO QHS 81 Days #162 06/18/17 [History Last Taken Unknown] acetaminophen 500 - 1,000 mg PO Q6H PRN PRN 06/25/17 [History Last Taken Unknown] biotin-keratin 1 ea PO QHS 06/25/17 [History Last Taken Unknown] cholecalciferol (vitamin D3) 1,000 unit PO QHS 06/25/17 [History Last Taken Unknown] esomeprazole magnesium 20 mg PO QHS 06/25/17 [History Last Taken Unknown] vobwfxsf-fjza-sbl4-C-david-bosw 1 ea PO QHS 06/25/17 [History Last Taken Unknown] latanoprost 1 drp EACH EYE QHS 06/25/17 [History Last Taken Unknown] lisinopril-hydrochlorothiazide 1 tab PO QHS 06/25/17 [History Last Taken Unknown] meloxicam 7.5 mg PO QHS 06/25/17 [History Last Taken Unknown] sertraline 50 mg PO DAILY 06/25/17 [History Last Taken Unknown] sodium chloride 1 drp RIGHT EYE DAILY 06/25/17 [History Last Taken Unknown] timolol maleate 1 drp EACH EYE DAILY 06/25/17 [History Last Taken Unknown] ibuprofen 200 mg capsule 200 mg PO ONCE 07/09/17 [History Last Taken Unknown] diclofenac sodium 75 mg PO BID 05/29/21 [History Last Taken Unknown] Allergy/AdvReac Type Severity Reaction Status Date / Time alendronate sodium Allergy Pain in Verified 05/29/21 21:57 [From Fosamax] joints Sulfa (Sulfonamide Allergy Shortness Verified 05/29/21 21:57 Antibiotics) of breath Surgical History H/O knee surgery History of hip surgery History of hysterectomy S/P ORIF (open reduction internal fixation) fracture Social History (Updated 05/30/21 @ 20:[address] Ayden Graham MD) household members: children Smoking Status: Never smoker alcohol intake: never substance use type: does not use ROS Constitutional Constitutional: Denies chills, fever(s) or weight gain ENT HEENT: Denies headache(s), nasal congestion or nasal discharge Cardiovascular Cardiovascular: Denies chest pain or palpitations Respiratory/Chest Respiratory/Chest: Denies cough, excessive phlegm production or shortness of breath with exertion Gastrointestinal Gastrointestinal: Denies abdominal pain, nausea or vomiting Genitourinary Genitourinary: Denies dysuria Musculoskeletal Musculoskeletal: Denies joint pain or joint swelling Integumentary Integumentary: Denies rash or wounds Neurologic Neurologic: Denies focal weakness, numbness or tingling Psychiatric Psychiatric: Denies anxiety, auditory hallucinations, depression, homicidal ideation or suicidal ideation Vital Signs Vital Signs Vital Signs: 05/30/21 18:45 Temperature 98.0 F Temperature Source Temporal Pulse Rate 82 Respiratory Rate 16 Blood Pressure 115/60 Blood Pressure Mean 78 Blood Pressure Source Monitor Blood Pressure Position Semi-Fowlers Blood Pressure Location Right Arm Pulse Ox 95 Oxygen Delivery Method Room Air Weight Weight: 58.967 kg Body Mass Index (BMI) 28.1 Physical Exam Const alert and oriented x3 General Appearance: cooperative HEENT normocephalic Eyes PERRL and EOMs intact bilaterally Neck supple, no JVD and no carotid bruits Resp normal respiratory effort, normal air movement and clear to auscultation bilaterally Cardio regular rate and regular rhythm GI normal to inspection, nondistended, normoactive bowel sounds, non-tender and non-distended Extremity normal capillary refill Extremity Narrative: Right lower extremity splint, GALA wrap. General Extremity: Negative for edema Skin no rashes or lesions noted General Skin Exam: no breakdown Psych affect normal Appearance: appropriate Results Lab / Micro Data Result Diagrams: 05/31/21 04:48 05/31/21 04:48 Assessment & Plan Assessment/Plan (1) Debility: (2) Closed displaced trimalleolar fracture of right ankle: (3) Patellar fracture: QUALIFIERS: Encounter type: subsequent encounter Fracture alignment: displaced Fracture healing: with delayed healing Fracture morphology: comminuted Fracture type: closed Laterality: left Qualified Code(s): S82.042G - Displaced comminuted fracture of left patella, subsequent encounter for closed fracture with delayed healing (4) Shoulder dislocation: (5) Osteoarthritis: (6) Back pain: (7) Hypertension: (8) Irritable bowel syndrome: (9) Vitamin D deficiency: (10) Gastroesophageal reflux disease: (11) Glaucoma: (12) Depression: PLAN: 76 year old female with below past medical history hospitalized for right ankle fracture, underwent right open reduction internal fixation of trimalleolar ankle fracture with syndesmosis repair included 05/30/[address] Arita, admitted to TCU with debility, here for rehabilitation, strengthening, prior to discharge home with daughter. * Debility - PT/OT. * Pain - Tylenol 1000mg q6h prn pain (1-3), Tramadol 50mg Q6h prn pain (4-5), Oxycodone 5mg Q4h prn pain (6-10). * Bowel - Miralax 17gm daily, Senna/colace 2 tablets twice daily, Dulcolax 10mg daily prn. * Adult immunization - Administer prevnar 13, pneumovax 23, fluzone, covid19 vaccine as appropriate. * DVT prophylaxis - Lovenox 30mg sc daily. * Irritable bowel syndrome - Hold Elavil while on Tramadol due to drug interaction. * Vitamin D deficiency - D3 50mcg daily. * Acute kidney injury - Stop Voltaren 75mg bid, Stop Ibuprofen 200mg x 1 dose, Stop Meloxicam 7.5mg qhs, monitor kidney function. * Glaucoma - Latanoprost 0.005% 1gtt ou qhs, Timolol 0.25% 1 gtt ou daily. * Hypertension - Lisinopril 10mg daily, HCTZ 12.5mg daily. * GERD - Pantoprazole 20mg qhs. * Dry eyes - Artificial tears 1gtt od tid. * Depression - Sertraline 50mg daily, stable chronic medical terminologist use, GDR not recommended.
[2021-05-30 21:48] VITALS: PULSE 72; RESP 16; O2SAT 96
[2021-05-30] MEDS: Latanoprost 0.005% 1 Bottle 1 DRP EACH EYE (22:57)
[2021-05-30] MEDS: Cholecalciferol (VIT D3) 25 MCG TABLET (1,000 UNITS) 50 MCG PO (22:58)
[2021-05-30] MEDS: Pantoprazole Sodium 20 MG Tablet PO (22:59)
[2021-05-30] MEDS: 0.9% Saline Lock 10 ML Syringe IV (23:02)
[2021-05-31 04:57] LABS: Absolute Lymphocyte Count 1.27 X10^3/uL (0.83-4.51); Absolute Neutrophil Count 3.5 X10^3/uL (2.0-7.7); Basophil# 0.02 X10^3/uL; Basophil% 0.3 % (0-1); Eosinophil# 0.25 X10^3/uL; Eosinophils% 4.3 % (0-5); Hematocrit 33.9 % (37-47); Hemoglobin 10.6 g/dL (12.0-15.0); Lymphocyte # 1.27 X10^3/ul (0.83-4.51); Lymphocyte % 21.9 % (19-41); Mean Corp Hgb Conc 31.3 g/dL (32-36); Mean Corpuscular Hgb 29.9 pg (27.0-32.0); Mean Corpuscular Volume 95.5 fL (81-99); Mean Platelet Vol. 9.1 fl (6.2-12.0); Monocyte# 0.73 X10^3/uL; Monocyte% 12.6 % (0-10); NRBC Flagged by Analyzer 0 % (0-5); Neutrophil % 60.6 % (47-70); Platelet Count 152 K/mm3 (150-450); RBC Distribution Width CV 13.1 % (11.6-14.6); Red Blood Count 3.55 M/mm3 (4.2-5.4); White Blood Count 5.8 K/mm3 (4.4-11.0)
--- NOTE | 2021-05-31 05:07 | NURSING ---
Pt denies pain at this time and states that she feels the block is still working.
[2021-05-31 05:15] VITALS: BP 121/57; PULSE 59; RESP 16; TEMP 36.2; O2SAT 94
[2021-05-31 05:21] LABS: Anion Gap 5 (5-15); BUN 16 mg/dL (7-18); BUN/Creat Ratio 15.4 RATIO (10-20); Calcium,Total 8.7 mg/dL (8.5-10.1); Chloride 109 mmol/L (98-107); Creatinine, Serum 1.04 mg/dL (0.55-1.02); EST Glomerular Filtration Rate 54 mL/min (>60); Est Glom Filt Rate - Afr Amer 66 mL/min (>60); Glucose 90 mg/dL (74-106); Potassium 4.1 mmol/L (3.5-5.1); Sodium Level 141 mmol/L (136-145)
[2021-05-31] MEDS: Lisinopril 10 MG Tablet PO (05:21)
[2021-05-31] MEDS: Enoxaparin 30 MG/0.3 ML Syringe SC (05:22)
[2021-05-31] MEDS: Sertraline 50 MG Tablet PO (05:22)
[2021-05-31] MEDS: Senna/Docusate Sodium 1 Tablet 2 TABLET PO (05:22)
[2021-05-31] MEDS: Timolol 0.25% 5ML OPTH.BTL 1 DRP EACH EYE (05:22)
[2021-05-31] MEDS: hydroCHLOROthiazide 12.5mg 12.5 MG PO (05:23)
[2021-05-31] MEDS: Glycerin/Hypromellose/PEG400 15 ml Bottle 1 DRP RIGHT EYE ×3 (05:27→21:42)
[2021-05-31] MEDS: traMADol 50 MG Tablet PO ×2 (07:05→13:33)
--- NOTE | 2021-05-31 07:10 | NURSING ---
Patient c/o throbbing in right ankle after receiving Lovenox injection. Discussed options available for pain control. Patient rated her pain at 4-5. Tramadol administered. Discussed pain control and need for pain medications as needed and to not let pain get uncontrolled. Patient verbalized understanding. Will continue to monitor.
--- NOTE | 2021-05-31 08:49 | PN_ITS ---
Subjective Subjective This 76-year-old female was seen postoperative day #1 open reduction and internal fixation of right ankle fracture. She denies fever, chill, nausea, vomiting, shortness of breath, chest pain, calf pain. Her pain is moderate and her regional block is starting to wear off at this time. She relates improvement after taking a tramadol. Objective Data Objective Data Vital Signs: Vital Signs Temp Pulse Resp BP Pulse Ox 97.1 F L 59 L 16 121/57 H 94 05/31/21 05:15 05/31/21 05:15 05/31/21 05:15 05/31/21 05:15 05/31/21 05:15 Oxygen Delivery Method Room Air Weight: 58.967 kg Body Mass Index (BMI) 28.1 Intake & Output: Intake and Output for Last 24 Hours 05/29/21 05/30/21 05/31/21 23:59 23:59 23:59 Intake Total 240 / 240 120 / 120 Balance 240 / 240 120 / 120 Lab / Micro Data Result Diagrams: 05/31/21 04:48 05/31/21 04:48 Labs: Laboratory Results - last 24 hr 05/31/21 04:48: WBC 5.8, RBC 3.55 L, Hgb 10.6 L, Hct 33.9 L, MCV 95.5, MCH 29.9, MCHC 31.3 L, RDW Std Deviation 46.0 H, RDW Coeff of Jerry 13.1, Plt Count 152, MPV 9.1, Immature Gran % (Auto) 0.300, Neut % (Auto) 60.6, Lymph % (Auto) 21.9, Bell % (Auto) 12.6 H, Eos % (Auto) 4.3, Baso % (Auto) 0.3, Absolute Neuts (auto) 3.5, Absolute Lymphs (auto) 1.27, Nucleated RBC % 0 05/31/21 04:48: Sodium 141, Potassium 4.1, Chloride 109 H, Carbon Dioxide 27.0, Anion Gap 5, BUN 16, Creatinine 1.04 H, Estim Creat Clear Calc 41.50, Est GFR (MDRD) Af Amer 66, Est GFR (MDRD) Non-Af 54 L, BUN/Creatinine Ratio 15.4, Glucose 90, Calcium 8.7 Physical Exam Const alert and oriented x3 General Appearance: cooperative HEENT normocephalic Extremity normal capillary refill Extremity Narrative: no cyanosis, no calf tenderness (negative Zheng, bilateral) Posterior mold and sugar tong splint in place with ankle in rectus position Active range of motion all digits right foot General Extremity: edema Skin Skin Narrative: No new strikethrough on dressing or splint Capillary fill time is less than 3 seconds to all digits on the right foot Neuro Neuro Narrative: Epicritic sensation is intact to light touch to all digits of the right foot Assessment & Plan Assessment/Plan (1) Closed displaced trimalleolar fracture of right ankle: (2) Right ankle pain: (3) Walking difficulty due to ankle and foot: PLAN: I reviewed and discussed her case. Postoperative x-rays were reviewed with ankle in a rectus position and hardware intact with desired trajectory and position. Deformity and fracture reduction is noted. Her labs this morning are without gross abnormalities and her vital signs are stable/afebrile. Anticipated nonweightbearing status is for 8 to 12 weeks. To work with PT and OT while in the transitional care unit with an assistive device. Her splint and dressing are Clean, dry, and intact and these will be changed around 1 week postoperative. Medical management per Dr. Graham is greatly appreciated. DVT prophylaxis okay to start at this time with enoxaparin. I will continue to follow her while she is recovering in the transitional care unit. Please do not hesitate to call if you have any questions. Sophia Arita DPM, [facility]
[2021-05-31] MEDS: Tuberculin,Purif.prot.deriv. 50 TU/ML Vial 0.1 ML ID (11:12)
[2021-05-31] MEDS: 0.9% Saline Lock 10 ML Syringe IV (11:14)
[2021-05-31] MEDS: Acetaminophen 500 MG Tablet 1000 MG PO (14:49)
[2021-05-31 14:52] VITALS: BP 135/54; PULSE 68; RESP 18; TEMP 36.8; O2SAT 96
--- NOTE | 2021-05-31 16:29 | PCM.PN.RX ---
Progress Note - Pharmacy Subjective: TCU Admission Objective: Allergies alendronate sodium [From Fosamax] Allergy (Verified 05/29/21 21:57) Pain in joints Sulfa (Sulfonamide Antibiotics) Allergy (Verified 05/29/21 21:57) Shortness of breath Current Medications Generic Name Dose Route Start Last Admin Trade Name Freq PRN Reason Stop Dose Admin Acetaminophen 1,000 mg 05/30/21 20:21 05/31/21 14:49 Acetaminophen 500 Mg Tablet PO 1,000 mg Q6H PRN PRN Administration Pain Score 1-3 Bisacodyl 10 mg 05/30/21 20:21 Bisacodyl 5 Mg Tablet PO DAILY PRN Constipation Cholecalciferol 50 mcg 05/30/21 22:00 05/30/21 22:58 Cholecalciferol (Vit D3) 25 Mcg Tablet (1,000 Units) PO 50 mcg QHS OMAR Administration Enoxaparin Sodium 30 mg 05/31/21 06:00 05/31/21 05:22 Enoxaparin 30 Mg/0.3 Ml Syringe SC 30 mg DAILY@0600 OMAR Administration Hydrochlorothiazide 12.5 mg 05/31/21 06:00 05/31/21 05:23 Hydrochlorothiazide 12.5mg PO 12.5 mg DAILY OMAR Administration Latanoprost 1 drp 05/30/21 22:00 05/30/21 22:57 Latanoprost 0.005% 1 Bottle EACH EYE 1 drp QHS OMAR Administration Lisinopril 10 mg 05/31/21 06:00 05/31/21 05:21 Lisinopril 10 Mg Tablet PO 10 mg DAILY OMAR Administration Oxycodone HCl 5 mg 05/30/21 20:21 Oxycodone 5 Mg Tablet PO Q4H PRN PRN Pain Score 6-10 Pantoprazole Sodium 20 mg 05/30/21 22:00 05/30/21 22:59 Pantoprazole Sodium 20 Mg Tablet PO 20 mg QHS OMAR Administration Polyethylene Glycol 17 gm 05/31/21 06:00 05/31/21 05:08 Polyethylene Glycol 3350 17 Gm Packet PO Not Given DAILY OMAR Senna/Docusate Sodium 2 tablet 05/31/21 06:00 05/31/21 05:22 Senna/Docusate Sodium 1 Tablet PO 2 tablet BID OMAR Administration Sertraline HCl 50 mg 05/31/21 06:00 05/31/21 05:22 Sertraline 50 Mg Tablet PO 50 mg DAILY OMAR Administration Sodium Chloride 10 - 40 ml 05/30/21 18:21 05/31/21 11:14 0.9% Saline Lock 10 Ml Syringe IV 10 ml UD PRN Administration SALINE FLUSH Timolol Maleate 1 drp 05/31/21 06:00 05/31/21 05:22 Timolol 0.25% 5ml Opth.Btl EACH EYE 1 drp DAILY OMAR Administration Tramadol HCl 50 mg 05/30/21 20:21 05/31/21 13:33 Tramadol 50 Mg Tablet PO 50 mg Q6H PRN PRN Administration Pain Score 4-5 Tuberculin PPD 0.1 ml 06/07/21 10:00 Tuberculin,Purif.Prot.Deriv. 50 Tu/Ml Vial ID 06/07/21 10:01 X1 ONE Problem List (Last Reviewed 05/30/21 @ 20:[address] Ayden Graham MD) Depression (Acute) Glaucoma (Acute) Gastroesophageal reflux disease (Acute) Vitamin D deficiency (Acute) Irritable bowel syndrome (Acute) Hypertension (Chronic) Back pain (Acute) Osteoarthritis (Acute) Shoulder dislocation (Acute) Debility (Acute) Patellar fracture (Acute) Closed displaced trimalleolar fracture of right ankle (Acute) Right ankle pain (Acute) Walking difficulty due to ankle and foot (Acute) Vital Signs Temp Pulse Resp BP Pulse Ox 98.3 F 68 18 135/54 H 96 05/31/21 14:52 05/31/21 14:52 05/31/21 14:52 05/31/21 14:52 05/31/21 14:52 Oxygen Delivery Method Room Air Weight: 58.967 kg Body Mass Index (BMI) 28.1 Sodium 141 mmol/L (136-145) 05/31/21 04:48 Potassium 4.1 mmol/L (3.5-5.1) 05/31/21 04:48 Chloride 109 mmol/L (98-107) H 05/31/21 04:48 Carbon Dioxide 27.0 mmol/L (21.0-32.0) 05/31/21 04:48 Anion Gap 5 (5-15) 05/31/21 04:48 BUN 16 mg/dL (7-18) 05/31/21 04:48 Creatinine 1.04 mg/dL (0.55-1.02) H 05/31/21 04:48 Est GFR (MDRD) Af Amer 66 mL/min (>60) 05/31/21 04:48 Est GFR (MDRD) Non-Af 54 mL/min (>60) L 05/31/21 04:48 BUN/Creatinine Ratio 15.4 RATIO (10-20) 05/31/21 04:48 Glucose 90 mg/dL (74-106) 05/31/21 04:48 Assessment/Plan: 1. Pain: acetaminophen 1000mg PO Q6H PRN pain 1-3/10, tramadol 50mg PO Q6H PRN pain 4-5/10 and oxycodone 5mg PO Q4H PRN pain 6-10/10. Please continue to monitor for increased pain, PRN usage, constipation and respiratory depression. *2. DVT prophylaxis: enoxaparin 30mg SC daily. Please consider changing to 40mg based on CrCl 34ml/min using adjusted body weight. Thanks. Please continue to monitor for S/S of bleeding, hemoglobin (last 10.6g/dL), platelets (last 152,000) and renal function. 3. Hypertension: lisinopril 10mg PO daily and hydrochlorothiazide 12.5mg PO daily. Please continue to monitor BP (last 135/54), potassium (last 4.1mmol/L), sodium (last 141mmol/L), cough and renal function. 4. GERD: pantoprazole 20mg PO QHS. Please continue to monitor for S/S of GERD and diarrhea. 5. Glaucoma/dry eyes: latanoprost 0.005% 1gtt OU QHS, timolol 0.25% 1gtt OU daily and artificial tears 1gtt OD TID. Please continue to monitor for S/S of glaucoma and dry eyes. 6. Vitamin D deficiency: cholecalciferol 50mcg PO QHS. Please continue to monitor vitamin D level (last 05/29/21). Psychotropic Medications: 1. Depression: sertraline 50mg PO daily. Please see physician note regarding GDR. Unnecessary Medications: None Bowel Regimen: Miralax 17gm PO daily, senna/docusate 2T PO BID and bisacodyl 10mg PO daily PRN constipation. Please continue to monitor for constipation and PRN usage. Date of Note:: 05/31/21
[2021-05-31] MEDS: Cholecalciferol (VIT D3) 25 MCG TABLET (1,000 UNITS) 50 MCG PO (21:42)
[2021-05-31] MEDS: Pantoprazole Sodium 20 MG Tablet PO (21:42)
[2021-05-31] MEDS: Latanoprost 0.005% 1 Bottle 1 DRP EACH EYE (21:43)
[2021-05-31 22:36] VITALS: PULSE 68; RESP 16; O2SAT 97
[2021-06-01] MEDS: Acetaminophen 500 MG Tablet 1000 MG PO ×2 (02:11→19:50)
[2021-06-01] MEDS: Timolol 0.25% 5ML OPTH.BTL 1 DRP EACH EYE (05:46)
[2021-06-01] MEDS: Sertraline 50 MG Tablet PO (05:46)
[2021-06-01] MEDS: Enoxaparin 30 MG/0.3 ML Syringe SC (05:47)
[2021-06-01] MEDS: Glycerin/Hypromellose/PEG400 15 ml Bottle 1 DRP RIGHT EYE ×3 (05:47→19:52)
[2021-06-01 05:51] VITALS: BP 102/52; PULSE 59; RESP 16; TEMP 36.1; O2SAT 95
--- NOTE | 2021-06-01 05:57 | NURSING ---
HCTZ and Lisinopril held this a.m. per pt request. Pt states that she believes there was a dosage change at home. BP this a.m. was 90/53. Retake was 102/52.
--- NOTE | 2021-06-01 06:16 | PCM.PROGNOTE ---
Subjective Subjective This 76-year-old female was seen postoperative day #2 open reduction and internal fixation of right ankle fracture. She denies fever, chill, nausea, vomiting, shortness of breath, chest pain, calf pain, urinary retention, constipation. Her pain is decreased intermittently to about 5 out of 10 at worst and is controlled with tramadol and Tylenol. Objective Data Objective Data Vital Signs: Vital Signs Temp Pulse Resp BP Pulse Ox 97.0 F L 59 L 16 102/52 L 95 06/01/21 05:51 06/01/21 05:51 06/01/21 05:51 06/01/21 05:51 06/01/21 05:51 Oxygen Delivery Method Room Air Weight: 58.967 kg Body Mass Index (BMI) 28.1 Intake & Output: Intake and Output for Last 24 Hours 05/30/21 05/31/21 06/01/21 23:59 23:59 23:59 Intake Total 240 / 240 800 / 800 Balance 240 / 240 800 / 800 Lab / Micro Data Result Diagrams: 05/31/21 04:48 05/31/21 04:48 Physical Exam Const alert and oriented x3 General Appearance: cooperative HEENT normocephalic Extremity normal capillary refill Extremity Narrative: no cyanosis, no calf tenderness (negative Zheng, bilateral) Posterior mold and sugar tong splint in place with ankle in rectus position Active range of motion all digits right foot General Extremity: edema Skin Skin Narrative: No new strikethrough on dressing or splint Capillary fill time is less than 3 seconds to all digits on the right foot Neuro Neuro Narrative: Epicritic sensation is intact to light touch to all digits of the right foot Assessment & Plan Assessment/Plan (1) Closed displaced trimalleolar fracture of right ankle: (2) Right ankle pain: (3) Walking difficulty due to ankle and foot: PLAN: I reviewed and discussed her case. She remained stable. Anticipated nonweightbearing status is for 8 to 12 weeks. To work with PT and OT while in the transitional care unit with an assistive device. Her splint and dressing are clean, dry, and intact and these will be changed around 1 week postoperative. Medical management per Dr. Graham is greatly appreciated. DVT prophylaxis started with enoxaparin. I will continue to follow her while she is recovering in the transitional care unit weekly or biweekly. Please do not hesitate to call if you have any questions. Sophia Arita DPM, [facility] [phone]
[2021-06-01 15:53] VITALS: BP 113/63; PULSE 71; RESP 14; TEMP 37.1; O2SAT 95
--- NOTE | 2021-06-01 16:12 | CHAPLAIN ---
Type of Pastoral Visit _x__ Initial Visit ___ Follow-up Visit ___ On-call Visit ___ General Patient Visit ___ Spiritual Assessment ___ Family Conference ___ Bereavement ___ Rapid Response ___ Code Blue ___ Other (describe below) Pastoral Care Referral From _x__ Patient ___ Family ___ Nurse ___ Physician ___ Deckhand [employer] ___ It Infrastructure Manager ___ Other (describe below) Sacrament/Intervention _x__ Active listening ___ Anointing ___ Catholic ___ Bereavement ___ Communion ___ Antonette exploration ___ _x__ Life review _x__ Prayer ___ Reconciliation ___ Sacrament of Sick _x__ Supportive presence ___ Wedding ___ Other (describe below) Pastoral Comments patient is an active talker and 'straight shooter'; pt speaks of her injury and how it impacts her family; pt also spoke of family issues at home; discussion followed about how to find her peace and looking at this therapy time as a respite to her spirit to heal as well; pt said she had more peace now after the discussion and prayer
--- NOTE | 2021-06-01 17:07 | CASEMGMT ---
Social Work Met with patient for initial assessment. Discussed code status. Confirmed full code. MOLST form completed, communication to , placed in chart. Pt denied wanting to complete advanced directives. Explained [facility] insurance with NRD 06/02 and continued stay is not guaranteed. Explained IDTs concerns returning home r/t steps to enter, no assistance at home. Pt denied wanting a ramp or resources stating I'm not worried about it; I have several strong male friends and neighbors that get up the steps and then I wouldn't go anywhere. Inquired about doctor's appts and having assistance in the home. Pt reiterated, I'm not worried about it. I have people to help me. I've done this once before and I was fine. Pt explained she is primary caregiver to dtr who has Parkinson's and gddtr is in her 30s and has social anxiety, so she doesn't leave the house much. Plus a friend is currently staying with them as well. Pt stated her and her dtr share the bedroom. Pt has a BSC and will sleep in the lift chair. Offered pt has a lot happening in her life and how her mood has been. Pt explained she has depression, but who doesn't in [place]. Her medications are effective. Offered counseling resources - suggested Telecounseling. Pt agreed. Pt would like to use [facility] as that who comes to the house for her dtr. Suggested applying for [facility]. Pt stated she already started the process. Pt mentioned thinking and memory not as good as it used to be, which was demonstrated throughout conversation and with BIMS assessment. Offered ST consult. Pt agreed. Nursing notified. SW to assist with discharge planning. Barbie Kim, PHILIPPE FIELD EDUCATION COORDINATOR
[2021-06-01] MEDS: Latanoprost 0.005% 1 Bottle 1 DRP EACH EYE (19:48)
[2021-06-01] MEDS: Pantoprazole Sodium 20 MG Tablet PO (19:49)
[2021-06-01] MEDS: Cholecalciferol (VIT D3) 25 MCG TABLET (1,000 UNITS) 50 MCG PO (19:49)
[2021-06-02 05:00] VITALS: BP 114/58; PULSE 56; RESP 16; TEMP 37.1
[2021-06-02] MEDS: Glycerin/Hypromellose/PEG400 15 ml Bottle 1 DRP RIGHT EYE ×3 (05:19→22:20)
[2021-06-02] MEDS: Enoxaparin 30 MG/0.3 ML Syringe SC (05:20)
[2021-06-02] MEDS: Timolol 0.25% 5ML OPTH.BTL 1 DRP EACH EYE (05:21)
[2021-06-02] MEDS: Sertraline 50 MG Tablet PO (05:22)
[2021-06-02 07:58] VITALS: O2SAT 99
[2021-06-02] MEDS: traMADol 50 MG Tablet PO (13:03)
[2021-06-02 13:56] VITALS: BP 128/59; PULSE 66; RESP 16; TEMP 36.8; O2SAT 94
[2021-06-02 13:57] VITALS: PULSE 66; RESP 16; O2SAT 94
[2021-06-02] MEDS: MENTHOL 226.8 GM JAR 1 APPLIC TOPICAL (17:23)
[2021-06-02] MEDS: Acetaminophen 500 MG Tablet 1000 MG PO ×2 (17:28→23:56)
[2021-06-02] MEDS: Pantoprazole Sodium 20 MG Tablet PO (22:20)
[2021-06-02] MEDS: Latanoprost 0.005% 1 Bottle 1 DRP EACH EYE (22:20)
[2021-06-02] MEDS: Cholecalciferol (VIT D3) 25 MCG TABLET (1,000 UNITS) 50 MCG PO (22:20)
[2021-06-03] MEDS: Glycerin/Hypromellose/PEG400 15 ml Bottle 1 DRP RIGHT EYE ×3 (06:43→21:03)
[2021-06-03] MEDS: Sertraline 50 MG Tablet PO (06:43)
[2021-06-03] MEDS: Enoxaparin 30 MG/0.3 ML Syringe SC (06:43)
[2021-06-03] MEDS: Timolol 0.25% 5ML OPTH.BTL 1 DRP EACH EYE (06:43)
[2021-06-03] MEDS: traMADol 50 MG Tablet PO ×2 (12:25→18:32)
[2021-06-03] MEDS: Acetaminophen 500 MG Tablet 1000 MG PO (14:17)
[2021-06-03 18:37] VITALS: BP 148/64; PULSE 83; RESP 16; TEMP 36.7; O2SAT 93
[2021-06-03] MEDS: Pantoprazole Sodium 20 MG Tablet PO (21:01)
[2021-06-03] MEDS: Cholecalciferol (VIT D3) 25 MCG TABLET (1,000 UNITS) 50 MCG PO (21:02)
[2021-06-03] MEDS: Latanoprost 0.005% 1 Bottle 1 DRP EACH EYE (21:03)
[2021-06-03 22:46] VITALS: PULSE 63; RESP 14; O2SAT 96
[2021-06-04] MEDS: Acetaminophen 500 MG Tablet 1000 MG PO ×2 (00:29→13:49)
[2021-06-04] MEDS: Glycerin/Hypromellose/PEG400 15 ml Bottle 1 DRP RIGHT EYE ×3 (04:52→22:03)
[2021-06-04] MEDS: Enoxaparin 30 MG/0.3 ML Syringe SC (04:52)
[2021-06-04] MEDS: Timolol 0.25% 5ML OPTH.BTL 1 DRP EACH EYE (04:53)
[2021-06-04] MEDS: Sertraline 50 MG Tablet PO (04:53)
[2021-06-04] MEDS: traMADol 50 MG Tablet PO ×2 (10:16→22:07)
[2021-06-04 15:39] VITALS: BP 95/65; PULSE 71; RESP 16; TEMP 36.5; O2SAT 95
[2021-06-04] MEDS: Cholecalciferol (VIT D3) 25 MCG TABLET (1,000 UNITS) 50 MCG PO (22:08)
[2021-06-04] MEDS: Pantoprazole Sodium 20 MG Tablet PO (22:08)
[2021-06-04] MEDS: Latanoprost 0.005% 1 Bottle 1 DRP EACH EYE (22:09)
[2021-06-05] MEDS: Acetaminophen 500 MG Tablet 1000 MG PO (02:43)
[2021-06-05] MEDS: Enoxaparin 30 MG/0.3 ML Syringe SC (04:52)
[2021-06-05] MEDS: Sertraline 50 MG Tablet PO (04:52)
[2021-06-05] MEDS: Glycerin/Hypromellose/PEG400 15 ml Bottle 1 DRP RIGHT EYE ×3 (04:53→20:36)
[2021-06-05] MEDS: Timolol 0.25% 5ML OPTH.BTL 1 DRP EACH EYE (04:53)
[2021-06-05 09:51] VITALS: PULSE 71; RESP 18; O2SAT 98
--- NOTE | 2021-06-05 11:49 | NURSING ---
Resident educated on the COVID 19 Vaccine and does not want to receive it at this time.
[2021-06-05] MEDS: traMADol 50 MG Tablet PO ×2 (13:03→20:35)
[2021-06-05] MEDS: MENTHOL 226.8 GM JAR 1 APPLIC TOPICAL (13:07)
[2021-06-05 15:15] VITALS: BP 121/68; PULSE 73; RESP 14; TEMP 36.6; O2SAT 95
[2021-06-05] MEDS: Cholecalciferol (VIT D3) 25 MCG TABLET (1,000 UNITS) 50 MCG PO (20:35)
[2021-06-05] MEDS: Pantoprazole Sodium 20 MG Tablet PO (20:35)
[2021-06-05] MEDS: Latanoprost 0.005% 1 Bottle 1 DRP EACH EYE (20:36)
[2021-06-06] MEDS: Timolol 0.25% 5ML OPTH.BTL 1 DRP EACH EYE (05:39)
[2021-06-06] MEDS: Sertraline 50 MG Tablet PO (05:39)
[2021-06-06] MEDS: Enoxaparin 30 MG/0.3 ML Syringe SC (05:39)
[2021-06-06] MEDS: Glycerin/Hypromellose/PEG400 15 ml Bottle 1 DRP RIGHT EYE ×3 (05:39→20:32)
[2021-06-06 05:42] VITALS: BP 120/72; PULSE 69
[2021-06-06 14:47] VITALS: BP 120/69; PULSE 72; RESP 16; TEMP 36.6; O2SAT 94
[2021-06-06] MEDS: Latanoprost 0.005% 1 Bottle 1 DRP EACH EYE (20:32)
[2021-06-06] MEDS: Pantoprazole Sodium 20 MG Tablet PO (20:34)
[2021-06-06] MEDS: Cholecalciferol (VIT D3) 25 MCG TABLET (1,000 UNITS) 50 MCG PO (20:34)
[2021-06-07] MEDS: Glycerin/Hypromellose/PEG400 15 ml Bottle 1 DRP RIGHT EYE ×3 (04:48→22:02)
[2021-06-07] MEDS: Enoxaparin 30 MG/0.3 ML Syringe SC (04:49)
[2021-06-07] MEDS: Sertraline 50 MG Tablet PO (04:49)
[2021-06-07] MEDS: Timolol 0.25% 5ML OPTH.BTL 1 DRP EACH EYE (05:21)
[2021-06-07 05:30] LABS: Absolute Neutrophil Count 3.1 X10^3/uL (2.0-7.7); Basophil# 0.02 X10^3/uL; Basophil% 0.3 % (0-1); Eosinophil# 0.17 X10^3/uL; Eosinophils% 2.9 % (0-5); Hematocrit 38.6 % (37-47); Hemoglobin 12.9 g/dL (12.0-15.0); Lymphocyte % 29.2 % (19-41); Mean Corp Hgb Conc 33.4 g/dL (32-36); Mean Corpuscular Volume 92.8 fL (81-99); Mean Platelet Vol. 9.2 fl (6.2-12.0); Monocyte# 0.87 X10^3/uL; Monocyte% 14.9 % (0-10); NRBC Flagged by Analyzer 0 % (0-5); Neutrophil # 3.05 X10^3/uL (2.7-7.7); Neutrophil % 52.4 % (47-70); Platelet Count 242 K/mm3 (150-450); RBC Distribution Width CV 13.2 % (11.6-14.6); RBC Distribution Width SD 44.9 fl (35.1-43.9); Red Blood Count 4.16 M/mm3 (4.2-5.4); White Blood Count 5.8 K/mm3 (4.4-11.0)
[2021-06-07 05:38] LABS: Anion Gap 6 (5-15); BUN 34 mg/dL (7-18); BUN/Creat Ratio 34.6 RATIO (10-20); Calcium,Total 9.1 mg/dL (8.5-10.1); Chloride 104 mmol/L (98-107); Creatinine, Serum 0.98 mg/dL (0.55-1.02); EST Glomerular Filtration Rate 58 mL/min (>60); Est Glom Filt Rate - Afr Amer 70 mL/min (>60); Estimated Creatinine Clearance 39.74 ml/min; Glucose 95 mg/dL (74-106); Potassium 4.3 mmol/L (3.5-5.1); Sodium Level 139 mmol/L (136-145)
[2021-06-07] MEDS: Acetaminophen 500 MG Tablet 1000 MG PO ×2 (09:46→22:05)
--- NOTE | 2021-06-07 10:39 | CASEMGMT ---
Social Work IDT met with patient for care plan meeting. Discussed patient's progress in PT/OT and nursing. Pt progressing well. Explained two staff members test positive for COVID and pt will remain in room for the duration of outbreak status. Explained [facility] insurance with NRD 06/12 and continued stay is not guaranteed. The goal is for pt to return home caring for dtr and gddtr. Pt still reports friend can assist pt up and down the stairs to get in and out of house. Pt is NWBS and once that status gets changed, pt will not continue with therapy at [facility]. Thus, IDT would like pt to remain here longer to continue working with therapy since she will not have therapy at home. Offered for gddtr to come in for therapy training. Offered to make appt with counseling agency of pt's choice. SW to continue to follow for DC planning. Barbie Kim, CORE OVEN TENDER FIELD SALES TRAINER
[2021-06-07] MEDS: Tuberculin,Purif.prot.deriv. 50 TU/ML Vial 0.1 ML ID (10:56)
--- NOTE | 2021-06-07 12:41 | MDS.RN ---
Attempted to contact granddaughter blanquita, and daughter Joyce to notify 2 TCU staff testing positive for Covid, phones not working or not accepting calls. Resident is aware.
[2021-06-07 12:46] VITALS: BP 119/51; PULSE 63; RESP 16; TEMP 37.3; O2SAT 95
[2021-06-07 20:05] VITALS: PULSE 72; RESP 16; O2SAT 97
[2021-06-07] MEDS: Pantoprazole Sodium 20 MG Tablet PO (22:02)
[2021-06-07] MEDS: Cholecalciferol (VIT D3) 25 MCG TABLET (1,000 UNITS) 50 MCG PO (22:02)
[2021-06-07] MEDS: Latanoprost 0.005% 1 Bottle 1 DRP EACH EYE (22:03)
[2021-06-08] MEDS: Timolol 0.25% 5ML OPTH.BTL 1 DRP EACH EYE (05:42)
[2021-06-08] MEDS: Glycerin/Hypromellose/PEG400 15 ml Bottle 1 DRP RIGHT EYE ×3 (05:42→20:23)
[2021-06-08] MEDS: Enoxaparin 30 MG/0.3 ML Syringe SC (05:43)
[2021-06-08] MEDS: Sertraline 50 MG Tablet PO (05:43)
[2021-06-08] MEDS: Acetaminophen 500 MG Tablet 1000 MG PO ×2 (05:47→20:27)
[2021-06-08 09:12] VITALS: PULSE 72; RESP 18; O2SAT 96
--- NOTE | 2021-06-08 14:02 | NURSING ---
Resident informed of staff members testing positive for COVID.
[2021-06-08 15:35] VITALS: BP 118/63; PULSE 72; RESP 16; TEMP 36.5; O2SAT 96
[2021-06-08] MEDS: Pantoprazole Sodium 20 MG Tablet PO (20:23)
[2021-06-08] MEDS: Latanoprost 0.005% 1 Bottle 1 DRP EACH EYE (20:24)
[2021-06-08] MEDS: Cholecalciferol (VIT D3) 25 MCG TABLET (1,000 UNITS) 50 MCG PO (20:24)
[2021-06-09] MEDS: Sertraline 50 MG Tablet PO (05:55)
[2021-06-09] MEDS: Enoxaparin 30 MG/0.3 ML Syringe SC (05:55)
[2021-06-09] MEDS: Timolol 0.25% 5ML OPTH.BTL 1 DRP EACH EYE ×2 (05:56)
[2021-06-09] MEDS: Glycerin/Hypromellose/PEG400 15 ml Bottle 1 DRP RIGHT EYE ×3 (05:59→20:17)
[2021-06-09] MEDS: Acetaminophen 500 MG Tablet 1000 MG PO ×2 (10:28→20:14)
[2021-06-09 16:00] VITALS: BP 120/54; PULSE 64; RESP 14; TEMP 36.6; O2SAT 98
[2021-06-09] MEDS: Cholecalciferol (VIT D3) 25 MCG TABLET (1,000 UNITS) 50 MCG PO (20:15)
[2021-06-09] MEDS: Pantoprazole Sodium 20 MG Tablet PO (20:16)
[2021-06-09] MEDS: Latanoprost 0.005% 1 Bottle 1 DRP EACH EYE (20:18)
[2021-06-09 20:31] VITALS: PULSE 85; RESP 16; O2SAT 98
[2021-06-10] MEDS: Acetaminophen 500 MG Tablet 1000 MG PO ×3 (05:16→20:55)
[2021-06-10] MEDS: Sertraline 50 MG Tablet PO (05:17)
[2021-06-10] MEDS: Enoxaparin 30 MG/0.3 ML Syringe SC (05:17)
[2021-06-10] MEDS: Glycerin/Hypromellose/PEG400 15 ml Bottle 1 DRP RIGHT EYE ×3 (05:17→20:57)
[2021-06-10 10:38] VITALS: PULSE 66; RESP 16; O2SAT 99
[2021-06-10 14:11] VITALS: BP 105/67; PULSE 76; RESP 18; TEMP 36.1; O2SAT 96
[2021-06-10] MEDS: Cholecalciferol (VIT D3) 25 MCG TABLET (1,000 UNITS) 50 MCG PO (20:55)
[2021-06-10] MEDS: Pantoprazole Sodium 20 MG Tablet PO (20:55)
[2021-06-10] MEDS: Latanoprost 0.005% 1 Bottle 1 DRP EACH EYE (20:56)
[2021-06-10] MEDS: MENTHOL 226.8 GM JAR 1 APPLIC TOPICAL (20:58)
[2021-06-11] MEDS: Timolol 0.25% 5ML OPTH.BTL 1 DRP EACH EYE (04:31)
[2021-06-11] MEDS: Glycerin/Hypromellose/PEG400 15 ml Bottle 1 DRP RIGHT EYE ×3 (04:31→22:09)
[2021-06-11] MEDS: Enoxaparin 30 MG/0.3 ML Syringe SC (04:32)
[2021-06-11] MEDS: Sertraline 50 MG Tablet PO (04:32)
[2021-06-11] MEDS: Acetaminophen 500 MG Tablet 1000 MG PO ×2 (10:18→22:11)
[2021-06-11 10:23] VITALS: RESP 16; O2SAT 96
--- NOTE | 2021-06-11 12:00 | NURSING ---
pt c/o sinus herrera/PURA's every AM, takes zyrtec at home. dr landers updated, new order for claritin.
[2021-06-11 12:33] VITALS: BP 121/58; PULSE 69; RESP 16; TEMP 37.3; O2SAT 96
[2021-06-11] MEDS: Cholecalciferol (VIT D3) 25 MCG TABLET (1,000 UNITS) 50 MCG PO (22:09)
[2021-06-11] MEDS: Pantoprazole Sodium 20 MG Tablet PO (22:09)
[2021-06-11] MEDS: Latanoprost 0.005% 1 Bottle 1 DRP EACH EYE (22:10)
[2021-06-12] MEDS: Sertraline 50 MG Tablet PO (06:01)
[2021-06-12] MEDS: Enoxaparin 30 MG/0.3 ML Syringe SC (06:01)
[2021-06-12] MEDS: Loratadine 10 MG Tablet PO (06:01)
[2021-06-12] MEDS: Timolol 0.25% 5ML OPTH.BTL 1 DRP EACH EYE (06:01)
[2021-06-12] MEDS: Glycerin/Hypromellose/PEG400 15 ml Bottle 1 DRP RIGHT EYE ×3 (06:01→21:12)
[2021-06-12] MEDS: Acetaminophen 500 MG Tablet 1000 MG PO ×2 (11:03→21:13)
--- NOTE | 2021-06-12 11:31 | MDS.RN ---
Information for the mds was obtained from review of the clinical record, interview of resident, staff, and direct observation of resident's care.
--- NOTE | 2021-06-12 12:49 | PCM.PROGNOTE ---
Subjective Subjective Patient was seen today for follow up on right ankle ORIF. She relates she is doing well, she relates to very minimal to no pain. She relates she has only needed Tylenol for any pain. She denies any cramping, no calf pain, no fevers, and no other complaints. She was resting comfortably in chair with leg rest up elevating foot/ankle. Objective Data Objective Data Vital Signs: Vital Signs Temp Pulse Resp BP Pulse Ox 99.1 F 69 16 121/58 H 96 06/11/21 12:33 06/11/21 12:33 06/11/21 12:33 06/11/21 12:33 06/11/21 12:33 Oxygen Delivery Method Room Air Weight: 53.212 kg Body Mass Index (BMI) 28.1 Intake & Output: Intake and Output for Last 24 Hours 06/10/21 06/11/21 06/12/21 23:59 23:59 23:59 Intake Total 720 / 720 720 / 720 480 / 480 Balance 720 / 720 720 / 720 480 / 480 Lab / Micro Data Result Diagrams: 06/07/21 05:10 06/07/21 05:10 Physical Exam Const alert and oriented x3 General Appearance: cooperative HEENT normocephalic Extremity normal capillary refill Extremity Narrative: Incision site well coapted with sutures intact, no dehiscence, no drainage, no erythema, no blistering, no cellulitis, no cyanosis right foot/ankle/leg with no calf tenderness (negative Zheng, bilateral). There is some residual ecchymosis to the right ankle and foot. There is some mild edema to the right ankle and hindfoot consistent with normal healing and post op course. No calf edema, and calf is soft and supple bilateral. Right ankle in good position with no instability, post op alignment maintained. General Extremity: edema Skin Skin Narrative: No new strikethrough on dressing or splint Capillary fill time is less than 3 seconds to all digits on the right foot Neuro Neuro Narrative: Epicritic sensation is intact to light touch to all digits of the right foot Assessment & Plan Assessment/Plan (1) Closed displaced trimalleolar fracture of right ankle: (2) Right ankle pain: (3) Walking difficulty due to ankle and foot: PLAN: Evaluation performed. She is doing well. Ankle is doing well, there is no evidence of infection or DVT at this time. No evidence of complications, and appears to be healing well at this time. No weightbearing right foot/ankle. Anticipated nonweightbearing status is for 8 to 12 weeks. To work with PT and OT while in the transitional care unit with an assistive device. Changed dressing today - foot/ankle cleansed with soap and water - some sutures were removed today. Painted incision site with betadine solution. Applied gauze, kerlix and charles bandage and well padded below keep posterior splint with sugar tong with heel offloaded. Keep clean, dry and intact. Keep foot elevated at much as possible. DVT Prophylaxis: Lovenox subcutaneous daily. Medical management per Dr. Graham is greatly appreciated. We will continue to follow her while she is recovering in the transitional care unit weekly, please call sooner if needed.
[2021-06-12 13:03] VITALS: BP 93/56; PULSE 66; RESP 15; TEMP 36.6; O2SAT 95
[2021-06-12] MEDS: traMADol 50 MG Tablet PO (13:18)
--- NOTE | 2021-06-12 18:49 | NURSING ---
Notified Dr. Graham that pt is refusing lovenox, received order to stop lovenox
[2021-06-12] MEDS: Pantoprazole Sodium 20 MG Tablet PO (21:14)
[2021-06-12] MEDS: Latanoprost 0.005% 1 Bottle 1 DRP EACH EYE (21:14)
[2021-06-12] MEDS: Cholecalciferol (VIT D3) 25 MCG TABLET (1,000 UNITS) 50 MCG PO (21:15)
[2021-06-12 22:00] VITALS: PULSE 81; RESP 16; O2SAT 98
[2021-06-13] MEDS: Glycerin/Hypromellose/PEG400 15 ml Bottle 1 DRP RIGHT EYE ×3 (05:14→21:04)
[2021-06-13] MEDS: traMADol 50 MG Tablet PO (05:14)
[2021-06-13] MEDS: Sertraline 50 MG Tablet PO (05:15)
[2021-06-13] MEDS: Timolol 0.25% 5ML OPTH.BTL 1 DRP EACH EYE (05:15)
[2021-06-13] MEDS: Loratadine 10 MG Tablet PO (05:15)
--- NOTE | 2021-06-13 05:18 | NURSING ---
Patient c/o of pain on medial aspect of right ankle. Ultram administered as directed. Will call Dr. Matthew's office for directions.
[2021-06-13 10:00] VITALS: PULSE 72; RESP 16; O2SAT 98
[2021-06-13] MEDS: Acetaminophen 500 MG Tablet 1000 MG PO (13:10)
[2021-06-13 14:02] VITALS: BP 104/55; PULSE 66; RESP 16; TEMP 36; O2SAT 93
[2021-06-13] MEDS: Cholecalciferol (VIT D3) 25 MCG TABLET (1,000 UNITS) 50 MCG PO (21:04)
[2021-06-13] MEDS: Pantoprazole Sodium 20 MG Tablet PO (21:04)
[2021-06-13] MEDS: Latanoprost 0.005% 1 Bottle 1 DRP EACH EYE (21:05)
[2021-06-14 04:50] VITALS: BP 128/64; PULSE 67
[2021-06-14] MEDS: Sertraline 50 MG Tablet PO (04:51)
[2021-06-14] MEDS: Loratadine 10 MG Tablet PO (04:51)
[2021-06-14] MEDS: Acetaminophen 500 MG Tablet 1000 MG PO ×2 (04:51→21:22)
[2021-06-14] MEDS: Timolol 0.25% 5ML OPTH.BTL 1 DRP EACH EYE (04:52)
[2021-06-14] MEDS: Glycerin/Hypromellose/PEG400 15 ml Bottle 1 DRP RIGHT EYE ×3 (04:53→21:15)
[2021-06-14 06:03] LABS: Absolute Lymphocyte Count 1.56 X10^3/uL (0.83-4.51); Absolute Neutrophil Count 3.5 X10^3/uL (2.0-7.7); Basophil# 0.02 X10^3/uL; Basophil% 0.3 % (0-1); Eosinophil# 0.19 X10^3/uL; Eosinophils% 3.1 % (0-5); Hematocrit 40.8 % (37-47); Hemoglobin 13.2 g/dL (12.0-15.0); Lymphocyte # 1.56 X10^3/ul (0.83-4.51); Lymphocyte % 25.7 % (19-41); Mean Corp Hgb Conc 32.4 g/dL (32-36); Mean Corpuscular Hgb 30.3 pg (27.0-32.0); Mean Corpuscular Volume 93.6 fL (81-99); Mean Platelet Vol. 9.3 fl (6.2-12.0); Monocyte# 0.77 X10^3/uL; Monocyte% 12.7 % (0-10); NRBC Flagged by Analyzer 0 % (0-5); Neutrophil # 3.51 X10^3/uL (2.7-7.7); Neutrophil % 57.9 % (47-70); Platelet Count 289 K/mm3 (150-450); RBC Distribution Width CV 13.3 % (11.6-14.6); RBC Distribution Width SD 45.7 fl (35.1-43.9); Red Blood Count 4.36 M/mm3 (4.2-5.4); White Blood Count 6.1 K/mm3 (4.4-11.0)
[2021-06-14 06:33] LABS: Anion Gap 6 (5-15); BUN 28 mg/dL (7-18); BUN/Creat Ratio 26.2 RATIO (10-20); Calcium,Total 8.9 mg/dL (8.5-10.1); Chloride 105 mmol/L (98-107); Creatinine, Serum 1.07 mg/dL (0.55-1.02); EST Glomerular Filtration Rate 53 mL/min (>60); Est Glom Filt Rate - Afr Amer 64 mL/min (>60); Estimated Creatinine Clearance 36.61 ml/min; Glucose 103 mg/dL (74-106); Potassium 4.2 mmol/L (3.5-5.1); Sodium Level 139 mmol/L (136-145)
[2021-06-14 10:00] VITALS: PULSE 63; RESP 18; O2SAT 95
[2021-06-14 16:00] VITALS: BP 129/73; PULSE 86; RESP 15; TEMP 36.8; O2SAT 97
[2021-06-14] MEDS: Cholecalciferol (VIT D3) 25 MCG TABLET (1,000 UNITS) 50 MCG PO (21:14)
[2021-06-14] MEDS: MENTHOL 226.8 GM JAR 1 APPLIC TOPICAL (21:14)
[2021-06-14] MEDS: Pantoprazole Sodium 20 MG Tablet PO (21:14)
[2021-06-14] MEDS: Latanoprost 0.005% 1 Bottle 1 DRP EACH EYE (21:15)
[2021-06-15] MEDS: Loratadine 10 MG Tablet PO (05:36)
[2021-06-15] MEDS: Sertraline 50 MG Tablet PO (05:36)
[2021-06-15] MEDS: Timolol 0.25% 5ML OPTH.BTL 1 DRP EACH EYE (05:37)
[2021-06-15] MEDS: Glycerin/Hypromellose/PEG400 15 ml Bottle 1 DRP RIGHT EYE ×3 (05:38→21:23)
[2021-06-15 13:41] VITALS: BP 97/54; PULSE 76; RESP 16; TEMP 36.8; O2SAT 93
[2021-06-15] MEDS: Acetaminophen 500 MG Tablet 1000 MG PO (14:32)
[2021-06-15] MEDS: Cholecalciferol (VIT D3) 25 MCG TABLET (1,000 UNITS) 50 MCG PO (21:23)
[2021-06-15] MEDS: Pantoprazole Sodium 20 MG Tablet PO (21:23)
[2021-06-15] MEDS: Latanoprost 0.005% 1 Bottle 1 DRP EACH EYE (21:24)
[2021-06-15 23:24] VITALS: PULSE 77; RESP 14; O2SAT 96
[2021-06-16] MEDS: traMADol 50 MG Tablet PO (03:11)
[2021-06-16] MEDS: Sertraline 50 MG Tablet PO (05:54)
[2021-06-16] MEDS: Loratadine 10 MG Tablet PO (05:54)
[2021-06-16] MEDS: Timolol 0.25% 5ML OPTH.BTL 1 DRP EACH EYE (05:55)
[2021-06-16] MEDS: Glycerin/Hypromellose/PEG400 15 ml Bottle 1 DRP RIGHT EYE ×3 (05:55→22:22)
--- NOTE | 2021-06-16 06:24 | NURSING ---
Pt given ultram fo leg pain, with good effect.
--- NOTE | 2021-06-16 08:21 | PCM.TCUNOT ---
Subjective Subjective Resident for procedure only. She has left rotator cuff syndrome 2/2 previous dislocation. After informed consent, area prepped in sterile manner, anesthesia with vapocoolant spray, left subacromial bursa injected with Kenalog 40mg, Lidocaine 1% 1ML, no immediate complications, patient tolerated procedure well. Objective Data Objective Data Vital Signs: Vital Signs Temp Pulse Resp BP Pulse Ox 98.2 F 77 14 97/54 L 96 06/15/21 13:41 06/15/21 23:24 06/15/21 23:24 06/15/21 13:41 06/15/21 23:24 Oxygen Delivery Method Room Air Weight: 53.524 kg Body Mass Index (BMI) 28.1 Intake & Output: Intake and Output for Last 24 Hours 06/14/21 06/15/21 06/16/21 23:59 23:59 23:59 Intake Total 710 / 710 840 / 840 Balance 710 / 710 840 / 840 Lab / Micro Data Result Diagrams: 06/14/21 05:30 06/14/21 05:30 Assessment & Plan Assessment/Plan (1) Left rotator cuff tear arthropathy: PLAN: Left subacromial bursa steroid injection as documented above.
[2021-06-16 14:55] VITALS: BP 117/67; PULSE 76; RESP 18; TEMP 36.2; O2SAT 96
[2021-06-16] MEDS: Pantoprazole Sodium 20 MG Tablet PO (22:23)
[2021-06-16] MEDS: Cholecalciferol (VIT D3) 25 MCG TABLET (1,000 UNITS) 50 MCG PO (22:24)
[2021-06-16] MEDS: Latanoprost 0.005% 1 Bottle 1 DRP EACH EYE (22:25)
[2021-06-16 22:40] VITALS: PULSE 79; RESP 12; O2SAT 96
[2021-06-17] MEDS: Acetaminophen 500 MG Tablet 1000 MG PO ×2 (00:19→10:44)
[2021-06-17] MEDS: Glycerin/Hypromellose/PEG400 15 ml Bottle 1 DRP RIGHT EYE ×3 (05:05→21:21)
[2021-06-17] MEDS: Sertraline 50 MG Tablet PO (05:06)
[2021-06-17] MEDS: Timolol 0.25% 5ML OPTH.BTL 1 DRP EACH EYE (05:06)
[2021-06-17] MEDS: Loratadine 10 MG Tablet PO (05:07)
[2021-06-17 11:00] VITALS: PULSE 81; RESP 16; O2SAT 96
[2021-06-17 15:36] VITALS: BP 140/73; PULSE 71; RESP 16; TEMP 37.3; O2SAT 98
--- NOTE | 2021-06-17 16:33 | NURSING ---
pt updated on 2 + covid staff members and one patient. did not want this nurse notifying family.
[2021-06-17] MEDS: Pantoprazole Sodium 20 MG Tablet PO (21:21)
[2021-06-17] MEDS: Latanoprost 0.005% 1 Bottle 1 DRP EACH EYE (21:22)
[2021-06-17] MEDS: Cholecalciferol (VIT D3) 25 MCG TABLET (1,000 UNITS) 50 MCG PO (21:22)
[2021-06-18] MEDS: Timolol 0.25% 5ML OPTH.BTL 1 DRP EACH EYE (05:23)
[2021-06-18] MEDS: Glycerin/Hypromellose/PEG400 15 ml Bottle 1 DRP RIGHT EYE ×3 (05:24→22:59)
[2021-06-18] MEDS: Sertraline 50 MG Tablet PO (05:24)
[2021-06-18] MEDS: Loratadine 10 MG Tablet PO (05:24)
[2021-06-18] MEDS: Acetaminophen 500 MG Tablet 1000 MG PO (14:54)
[2021-06-18 15:36] VITALS: BP 116/80; PULSE 62; RESP 14; TEMP 37.3; O2SAT 95
[2021-06-18] MEDS: Pantoprazole Sodium 20 MG Tablet PO (22:59)
[2021-06-18] MEDS: Cholecalciferol (VIT D3) 25 MCG TABLET (1,000 UNITS) 50 MCG PO (22:59)
[2021-06-18] MEDS: Latanoprost 0.005% 1 Bottle 1 DRP EACH EYE (23:00)
[2021-06-19] MEDS: Acetaminophen 500 MG Tablet 1000 MG PO ×2 (00:50→22:28)
[2021-06-19] MEDS: Loratadine 10 MG Tablet PO (05:13)
[2021-06-19] MEDS: Glycerin/Hypromellose/PEG400 15 ml Bottle 1 DRP RIGHT EYE ×3 (05:14→22:29)
[2021-06-19] MEDS: Timolol 0.25% 5ML OPTH.BTL 1 DRP EACH EYE (05:14)
[2021-06-19] MEDS: Sertraline 50 MG Tablet PO (05:14)
[2021-06-19 11:04] VITALS: PULSE 72; RESP 16; O2SAT 95
[2021-06-19 13:54] VITALS: BP 149/77; PULSE 72; RESP 18; TEMP 36.2; O2SAT 97
--- NOTE | 2021-06-19 16:16 | CASEMGMT ---
Social Work Pt requesting to meet with SW to discuss discharge plan. Pt requestint to be discharged home on Saturday. Pt denies any further therapy at this time stating she can start therapy once her weight bearing status is improved. Pt also states she has all needed DME. SW spoke with pt regarding counseling via telehealth and pt agrees to this and would like services set up with [facility]. VM left with [facility] with referral information. PT states that transportation home on Saturday will not be a problem and pt will have no difficulty getting into the house. No further SW needs. Plan: Home 06/21/21, no home health. NEHAL Maya
--- NOTE | 2021-06-19 18:35 | PCM.DC.SUM ---
Providers Date of Admission: 05/30/21 Primary Care Physician: Dr. Nicholas Soares, DO Consultations 05/30/21 18:44 Consult: Podiatry Routine Consulting Provider: Sophia Arita Reason for Consult: RT ankle fracture EMERGENT Consult: No MD Notified: No Date Notified: 05/30/21 Time Notified: 18:44 05/31/21 08:11 Consult: Podiatry Routine Consulting Provider: Sophia Arita Reason for Consult: Right ankle fracture s/p ORIF. EMERGENT Consult: No MD Notified: Yes Date Notified: 05/31/21 Time Notified: 08:11 Method of Notification: Provider Initiated Reason For Visit: RIGHT ANKLE FX Diagnosis Discharge Diagnosis (1) Left rotator cuff tear arthropathy: Status: Acute Code(s): M75.102 - Unspecified rotator cuff tear or rupture of left shoulder, not specified as traumatic; M12.812 - Other specific arthropathies, not elsewhere classified, left shoulder Medications at Discharge Home Medications cholecalciferol (vitamin D3) 1,000 unit PO QHS 06/25/17 esomeprazole magnesium 20 mg PO QHS 06/25/17 latanoprost 1 drp EACH EYE QHS 06/25/17 sertraline 50 mg PO DAILY 06/25/17 sodium chloride 1 drp RIGHT EYE DAILY 06/25/17 timolol maleate 1 drp EACH EYE DAILY 06/25/17 acetaminophen 1,000 mg PO Q6H PRN PRN #0 tab 06/19/21 loratadine [Allergy Relief (loratadine)] 10 mg PO DAILY 30 Days #30 tab 06/19/21 Hospital Course Operations - (ORIF right ankle fracture.) Procedures None Summary of Care Provided Minutes Spent on Discharge: 35 Hospital Course: 76 year old female with below past medical history hospitalized for right ankle fracture, underwent right open reduction internal fixation of trimalleolar ankle fracture with syndesmosis repair included 05/30/[address] Arita, admitted to TCU with debility, here for rehabilitation, strengthening, prior to discharge home with daughter. Discharge home 06/21/2021, No needs. Weight / BMI Weight Weight: 53.524 kg Body Mass Index (BMI) 28.1 ABG / Lab / Microbiology Data Result Diagrams: 06/14/21 05:30 06/14/21 05:30 D/C Instructions Discharge Diet: No restrictions Discharge Activity: Return to Normal Activity, May Shower and Use Walker Weight Bearing Status: No weight bearing (Right lower extremity.) Call your doctor if you observe: Fever of 101 or Higher, Inability to urinate, Inability to have a bowel movement, Shortness of breath, Dizziness, Fainting spells, Swelling in the ankles, Chest pain and Uncontrolled pain Additional Instructions: Discharge home 06/21/2021, No needs. Please Follow Up With: Nicholas Soares, When: 1 week. Meaningful Use Info Meaningful Use Diagnoses (Choose all that apply): None applicable Discharge Plan Admission Admit Date/Time: 05/30/21 17:27 Primary Reason for Your Visit: Debility. Attending Provider: Ayden Graham Chi Primary Care Provider: Nicholas Soares Consulting Providers: Sophia Arita Instructions Additional Instructions / Restrictions: Referral made to Arabella at [facility]. Arabella to contact patient directly. [employer] phone: [phone] Discharge home 06/21/2021, No needs. Discharge Orders/Prescriptions Prescriptions: New acetaminophen 500 mg Tablet 1,000 mg PO Q6H PRN PRN (Reason: Pain Score 1-3) Qty: 0 RF: 0 loratadine [Allergy Relief (loratadine)] 10 mg Tablet 10 mg PO DAILY 30 Days Qty: 30 RF: 0 Continued sodium chloride 1 DROP drops 1 drp RIGHT EYE DAILY RF: 0 latanoprost 1 DROP bottle 1 drp EACH EYE QHS RF: 0 timolol maleate 1 DROP drops 1 drp EACH EYE DAILY RF: 0 sertraline 50 MG tablet 50 mg PO DAILY RF: 0 esomeprazole magnesium 20 MG capsule,delayed release(DR/EC) 20 mg PO QHS RF: 0 cholecalciferol (vitamin D3) 1,000 UNIT capsule 1,000 unit PO QHS RF: 0 Discontinued amitriptyline 10 MG tablet 5 mg PO QHS 81 Days Qty: 162 RF: 0 ibuprofen 200 mg capsule 200 mg PO ONCE RF: 0 lisinopril-hydrochlorothiazide 1 TABLET tablet 1 tab PO QHS RF: 0 acetaminophen 500 MG tablet 500 - 1,000 mg PO Q6H PRN PRN (Reason: Pain) RF: 0 meloxicam 7.5 MG tablet 7.5 mg PO QHS RF: 0 hkrrdehb-npcr-pgi1-C-david-bosw 1 EACH tablet 1 ea PO QHS RF: 0 biotin-keratin 1 EACH tablet 1 ea PO QHS RF: 0 diclofenac sodium 75 mg tablet,delayed release (DR/EC) 75 mg PO BID RF: 0 Referrals / Follow Up: Nicholas Soares DO [Primary Care Provider] - Disposition Disposition (needs filled in before D/C Order can be placed): Home, Self Care
[2021-06-19] MEDS: Latanoprost 0.005% 1 Bottle 1 DRP EACH EYE (22:29)
[2021-06-19] MEDS: Pantoprazole Sodium 20 MG Tablet PO (22:29)
[2021-06-19] MEDS: Cholecalciferol (VIT D3) 25 MCG TABLET (1,000 UNITS) 50 MCG PO (22:30)
[2021-06-19] MEDS: MELATONIN 10 MG TABLET PO (22:30)
[2021-06-20] MEDS: Sertraline 50 MG Tablet PO (06:37)
[2021-06-20] MEDS: Glycerin/Hypromellose/PEG400 15 ml Bottle 1 DRP RIGHT EYE ×3 (06:37→22:15)
[2021-06-20] MEDS: Loratadine 10 MG Tablet PO (06:37)
[2021-06-20] MEDS: Timolol 0.25% 5ML OPTH.BTL 1 DRP EACH EYE (06:37)
[2021-06-20] MEDS: Acetaminophen 500 MG Tablet 1000 MG PO ×2 (10:10→22:14)
--- NOTE | 2021-06-20 11:30 | CASEMGMT ---
Social Work BIMS and PHQ9 interviews completed on this date for MDS assessment. NEHAL Maya
[2021-06-20 13:56] VITALS: BP 103/67; PULSE 72; RESP 16; TEMP 36.8; O2SAT 95
[2021-06-20 20:38] VITALS: PULSE 94; RESP 14; O2SAT 96
[2021-06-20] MEDS: Latanoprost 0.005% 1 Bottle 1 DRP EACH EYE (22:14)
[2021-06-20] MEDS: Pantoprazole Sodium 20 MG Tablet PO (22:14)
[2021-06-20] MEDS: Cholecalciferol (VIT D3) 25 MCG TABLET (1,000 UNITS) 50 MCG PO (22:14)
[2021-06-20] MEDS: MELATONIN 10 MG TABLET PO (22:14)
[2021-06-21 05:54] LABS: Absolute Lymphocyte Count 1.88 X10^3/uL (0.83-4.51); Absolute Neutrophil Count 4.1 X10^3/uL (2.0-7.7); Basophil# 0.02 X10^3/uL; Basophil% 0.3 % (0-1); Eosinophil# 0.22 X10^3/uL; Hematocrit 43.9 % (37-47); Lymphocyte # 1.88 X10^3/ul (0.83-4.51); Lymphocyte % 25.3 % (19-41); Mean Corp Hgb Conc 31.9 g/dL (32-36); Mean Corpuscular Hgb 30.2 pg (27.0-32.0); Mean Corpuscular Volume 94.8 fL (81-99); Mean Platelet Vol. 9.5 fl (6.2-12.0); Monocyte# 1.17 X10^3/uL; Monocyte% 15.7 % (0-10); NRBC Flagged by Analyzer 0 % (0-5); Neutrophil # 4.12 X10^3/uL (2.7-7.7); Neutrophil % 55.3 % (47-70); Platelet Count 295 K/mm3 (150-450); RBC Distribution Width CV 13.2 % (11.6-14.6); RBC Distribution Width SD 46.7 fl (35.1-43.9); Red Blood Count 4.63 M/mm3 (4.2-5.4); White Blood Count 7.4 K/mm3 (4.4-11.0)
[2021-06-21 06:15] LABS: Anion Gap 5 (5-15); BUN 34 mg/dL (7-18); BUN/Creat Ratio 27.9 RATIO (10-20); Chloride 106 mmol/L (98-107); Creatinine, Serum 1.22 mg/dL (0.55-1.02); EST Glomerular Filtration Rate 45 mL/min (>60); Est Glom Filt Rate - Afr Amer 55 mL/min (>60); Estimated Creatinine Clearance 32.22 ml/min; Glucose 96 mg/dL (74-106); Sodium Level 139 mmol/L (136-145)
[2021-06-21] MEDS: Loratadine 10 MG Tablet PO (06:53)
[2021-06-21] MEDS: Sertraline 50 MG Tablet PO (06:53)
[2021-06-21] MEDS: Timolol 0.25% 5ML OPTH.BTL 1 DRP EACH EYE (06:53)
[2021-06-21] MEDS: Glycerin/Hypromellose/PEG400 15 ml Bottle 1 DRP RIGHT EYE (06:53)
[2021-06-21 08:49] VITALS: BP 137/74; PULSE 82; RESP 18; TEMP 36.7; O2SAT 95
[2021-06-21 08:52] VITALS: PULSE 82; RESP 18; O2SAT 95
--- NOTE | 2021-06-21 12:18 | PN_ITS ---
Subjective Subjective This 76-year-old female was seen postoperative right lower extremity open reduction internal fixation of ankle fracture that was performed on 05-30-2021. She denies pain or swelling. She denies fever, chill, nausea, vomiting or calf pain. She has kept her dressing and splint clean, dry, and intact. She is scheduled for discharge home later this afternoon. Objective Data Objective Data Vital Signs: Vital Signs Temp Pulse Resp BP Pulse Ox 98.1 F 82 18 137/74 H 95 06/21/21 08:49 06/21/21 08:52 06/21/21 08:52 06/21/21 08:49 06/21/21 08:52 Oxygen Delivery Method Room Air Weight: 53.705 kg Body Mass Index (BMI) 28.1 Intake & Output: Intake and Output for Last 24 Hours 06/19/21 06/20/21 06/21/21 23:59 23:59 23:59 Intake Total 960 / 960 960 / 960 480 / 480 Balance 960 / 960 960 / 960 480 / 480 Lab / Micro Data Result Diagrams: 06/21/21 05:25 06/21/21 05:25 Labs: Laboratory Results - last 24 hr 06/21/21 05:25: WBC 7.4, RBC 4.63, Hgb 14.0, Hct 43.9, MCV 94.8, MCH 30.2, MCHC 31.9 L, RDW Std Deviation 46.7 H, RDW Coeff of Jerry 13.2, Plt Count 295, MPV 9.5, Immature Gran % (Auto) 0.400, Neut % (Auto) 55.3, Lymph % (Auto) 25.3, [facility] % (Auto) 15.7 H, Eos % (Auto) 3.0, Baso % (Auto) 0.3, Absolute Neuts (auto) 4.1, Absolute Lymphs (auto) 1.88, Nucleated RBC % 0 06/21/21 05:25: Sodium 139, Potassium 5.0, Chloride 106, Carbon Dioxide 28.0, Anion Gap 5, BUN 34 H, Creatinine 1.22 H, Estim Creat Clear Calc 32.22, Est GFR (MDRD) Af Amer 55 L, Est GFR (MDRD) Non-Af 45 L, BUN/Creatinine Ratio 27.9 H, Glucose 96, Calcium 9.0 Physical Exam Const alert and oriented x3 General Appearance: cooperative HEENT normocephalic Extremity normal capillary refill General Extremity: edema Assessment & Plan Assessment/Plan (1) Closed displaced trimalleolar fracture of right ankle: (2) Right ankle pain: (3) Walking difficulty due to ankle and foot: PLAN: I discussed her case. Evaluation performed. She is doing well. Ankle is doing well, there is no evidence of infection or DVT at this time. No evidence of complications, and appears to be healing well at this time. No weightbearing right foot/ankle. Anticipated nonweightbearing status is for 8 to 12 weeks. To work with PT and OT while in the transitional care unit with an assistive device. This is noted. Changed dressing today -the remaining sutures were removed and the cicatrix is healed. Applied gauze, kerlix and charles bandage and well padded below keep posterior splint with sugar tong with heel offloaded. Keep clean, dry and intact. Keep foot elevated at much as possible. DVT Prophylaxis: Lovenox subcutaneous daily. Medical management per Dr. Graham is greatly appreciated. She will be discharged home today. [facility] 1 week in which updated x-rays will be obtained at that time. Please do not hesitate to call if you have any questions. Sophia Arita DPM, FACFAS [facility] [phone]
== END 2021-06-21 13:14 | disposition home or self-care (01) | DRG 561 ==
PROVIDERS: Admitting Provider Family Medicine Geriatric Medicine; PCP Student in an Organized Health Care Education/Training Program; Referring Provider Family Medicine Geriatric Medicine; Visit Provider Family Medicine Geriatric Medicine
DX: S82.851D Displaced trimalleolar fracture of right lower leg, subsequent encounter for closed fracture with routine healing (principal); X58.XXXD Exposure to other specified factors, subsequent encounter; F32.A Depression, unspecified; I10 Essential (primary) hypertension; M19.90 Unspecified osteoarthritis, unspecified site; E55.9 Vitamin D deficiency, unspecified; K21.9 Gastro-esophageal reflux disease without esophagitis; K58.9 Irritable bowel syndrome, unspecified; H40.9 Unspecified glaucoma; Z79.899 Other long term (current) drug therapy; M75.102 Unspecified rotator cuff tear or rupture of left shoulder, not specified as traumatic
CPT/HCPCS: 36415; 80048; 85025; 87635; 92523; 97110; 97116; 97162; 97166; 97530; 97535; 97542; 97802; A4216; U0003; U0005